=== PATIENT | male | born 1995 | race Asian ===

== ENCOUNTER → 2018-01-06 12:41 | Outpatient (CLI) | payer BC, SELFPAY ==
[2018-01-06 13:26] LABS: Absolute Neutrophil Count 3.8 X10^3/uL (2.0-7.7); Basophil# 0.03 X10^3/uL; Basophil% 0.5 % (0-1); Eosinophil# 0.02 X10^3/uL; Eosinophils% 0.3 % (0-5); Hematocrit 47.5 % (40-54); Hemoglobin 16.5 g/dl (13.0-16.5); Lymphocyte % 27.8 % (19-41); Mean Corp Hgb Conc 34.7 g/gl (32-36); Mean Corpuscular Hgb 32.4 pg (27.0-32.0); Mean Corpuscular Volume 93.1 fL (80-94); Mean Platelet Vol. 10.5 fl (6.2-12.0); Monocyte# 0.55 X10^3/uL; Neutrophil % 62.2 % (47-70); Platelet Count 168 K/mm3 (150-450); RBC Distribution Width SD 40.5 fl (35.1-43.9); White Blood Count 6.1 K/mm3 (4.4-11.0)
[2018-01-06 13:28] LABS: POSITIVE COUNT NO; POSITIVE DIFFERENTIAL NO; POSITIVE MORPHOLOGY NO
[2018-01-06 13:46] LABS: AST(SGOT) 23 U/L (15-37); Alanine Aminotransfer ALT/SGPT 33 U/L (16-61); Albumin, Serum 3.9 g/dL (3.2-5.0); Alkaline Phosphatase 99 U/L (45-117); Anion Gap 5 (5-15); BUN 20 mg/dL (7-18); BUN/Creat Ratio 18.3 RATIO (10-20); Bilirubin, Direct 0.11 mg/dL (0.00-0.30); Calcium,Total 8.8 mg/dL (8.5-10.1); Chloride 104 mmol/L (98-107); Creatinine, Serum 1.09 mg/dL (0.70-1.30); EST Glomerular Filtration Rate 90 mL/min (>60); Est Glom Filt Rate - Afr Amer 109 mL/min (>60); Glucose 106 mg/dL (74-106); Potassium 3.9 mmol/L (3.5-5.1); Protein, Total 7.9 g/dL (6.4-8.2); Sodium Level 141 mmol/L (136-145)
[2018-01-07 14:08] LABS: Absolute CD4 Helper 500 /uL (359-1519); Basophils (Absolute) 0 x10E3/uL (0.0-0.2); CD4/CD8 Ratio 0.55 (0.92-3.72); Eosinophils 0 % (Not Estab.); Eosinophils (Absolute) 0 x10E3/uL (0.0-0.4); Hematocrit 47.7 % (37.5-51.0); Hemoglobin 16.7 g/dL (13.0-17.7); Immature Granulocytes 0 % (Not Estab.); Lymphs 29 % (Not Estab.); Lymphs (Absolute) 1.8 x10E3/uL (0.7-3.1); MCV 91 fL (79-97); Monocytes 7 % (Not Estab.); Monocytes (Absolute) 0.4 x10E3/uL (0.1-0.9); Neutrophils 63 % (Not Estab.); Neutrophils (Absolute) 3.8 x10E3/uL (1.4-7.0); Percent % CD4 Pos. Lymph. 27.8 % (30.8-58.5); Percent % CD8 Pos. Lymph. 50.3 % (12.0-35.5); Platelets 177 x10E3/uL (150-379); RBC Count 5.22 x10E6/uL (4.14-5.80); RDW 13.2 % (12.3-15.4)
[2018-01-07 14:35] LABS: Immature Granulocytes Absolute 0 x10E3/uL (0.0-0.1)
[2018-01-09 14:30] LABS: HIV-1 RNA by PCR, Quant. < 20 copies/mL (.)
== END ==
PROVIDERS: Visit Provider Internal Medicine Infectious Disease
DX: B20 Human immunodeficiency virus [HIV] disease (principal)
CPT/HCPCS: 36415; 80048; 80076; 85025; 86360; 87536

== ENCOUNTER → 2018-02-17 15:13 | Outpatient (CLI) | payer BC, SELFPAY ==
[2018-02-17 20:50] LABS: Hemoglobin 16.4 g/dl (13.0-16.5); Mean Corp Hgb Conc 34.2 g/gl (32-36); Mean Corpuscular Hgb 31.9 pg (27.0-32.0); Mean Corpuscular Volume 93.4 fL (80-94); Mean Platelet Vol. 9.9 fl (6.2-12.0); Platelet Count 196 K/mm3 (150-450); RBC Distribution Width SD 40.5 fl (35.1-43.9); Red Blood Count 5.14 M/mm3 (4.6-6.2); White Blood Count 6.3 K/mm3 (4.4-11.0)
[2018-02-17 21:13] LABS: AST(SGOT) 97 U/L (15-37); Alanine Aminotransfer ALT/SGPT 48 U/L (16-61); Albumin, Serum 4.3 g/dL (3.2-5.0); Alkaline Phosphatase 94 U/L (45-117); Anion Gap 9 (5-15); BUN 24 mg/dL (7-18); BUN/Creat Ratio 21.4 RATIO (10-20); Bilirubin, Direct 0.12 mg/dL (0.00-0.30); Calcium,Total 8.6 mg/dL (8.5-10.1); Chloride 104 mmol/L (98-107); Creatinine, Serum 1.12 mg/dL (0.70-1.30); EST Glomerular Filtration Rate 87 mL/min (>60); Est Glom Filt Rate - Afr Amer 105 mL/min (>60); Globulin 3.8 g/dL (2.2-4.2); Glucose 78 mg/dL (74-106); Potassium 3.5 mmol/L (3.5-5.1); Protein, Total 8.1 g/dL (6.4-8.2); Sodium Level 139 mmol/L (136-145)
[2018-02-17 21:25] LABS: Scan Indicated on CBC? Y/N NO
[2018-02-17 21:28] LABS: Color, Urine Yellow (Yellow); Glucose, Dipstick Normal (Normal); Ketone-Dipstick 15 mg/dl (Negative); Leukocyte Esterase-Dipstick Negative /ul (Negative); Nitrite-Dipstick Negative (Negative); Occult Blood-Urine Negative /ul (Negative); Protein-Dipstick Negative (Negative); Urine Bilirubin Dipstick Negative (Negative); Urine Clarity Clear (Clear); Urine Urobilinogen Normal (Normal)
[2018-02-19 10:01] LABS: Cholesterol 188 mg/dL (200); High Density Lipoprotein 43 mg/dL; Triglycerides 146 mg/dL; Very Low Density Lipoprotein 29 mg/dL (5-40)
[2018-02-20 01:05] LABS: Rapid Plasmin Reagin (RPR) NONREACTIVE (NONREACTIVE)
[2018-02-23 03:06] LABS: Absolute CD4 Helper 620 /uL (359-1519); Basophils (Absolute) 0 x10E3/uL (0.0-0.2); Eosinophils 1 % (Not Estab.); Eosinophils (Absolute) 0 x10E3/uL (0.0-0.4); Hematocrit 48.2 % (37.5-51.0); Hemoglobin 16.2 g/dL (13.0-17.7); Immature Granulocytes 0 % (Not Estab.); Immature Granulocytes Absolute 0 x10E3/uL (0.0-0.1); Lymphs 35 % (Not Estab.); Lymphs (Absolute) 2.2 x10E3/uL (0.7-3.1); MCH 31.5 pg (26.6-33.0); MCHC 33.6 g/dL (31.5-35.7); MCV 94 fL (79-97); Monocytes 9 % (Not Estab.); Monocytes (Absolute) 0.5 x10E3/uL (0.1-0.9); Neutrophils 54 % (Not Estab.); Neutrophils (Absolute) 3.5 x10E3/uL (1.4-7.0); Percent % CD4 Pos. Lymph. 28.2 % (30.8-58.5); Platelets 230 x10E3/uL (150-379); QNTFERON TB Ag Minus Nil Value 0 IU/mL (.); QNTFERON TB Mitogen Value > 10.00 IU/mL (.); RBC Count 5.15 x10E6/uL (4.14-5.80); RDW 13.1 % (12.3-15.4); WBC Count 6.3 x10E3/uL (3.4-10.8)
[2018-02-23 14:06] LABS: Hep C Antibodies <0.1 s/co ratio (0.0-0.9); QNTIFERON TB Gold Negative (Negative)
[2018-02-24 11:36] LABS: HIV-1 RNA by PCR, Quant. < 20 copies/mL (.)
== END ==
PROVIDERS: Visit Provider Internal Medicine Infectious Disease
DX: B20 Human immunodeficiency virus [HIV] disease (principal)
CPT/HCPCS: 36415; 80048; 80061; 80076; 81002; 85027; 86361; 86480; 86592; 86803; 87536

== ENCOUNTER → 2018-06-11 12:27 | Outpatient (CLI) | payer OTHER, SELFPAY ==
[2018-06-11 13:15] LABS: Mucous, Urine 0 SEEN /hpf (<or=2+); Red Blood Cells-Urine 0 SEEN /hpf (0-5); Squamous Epithelial Cells - UA 0 SEEN /hpf (0-5); White Blood Cells 0 SEEN /hpf (0-5)
[2018-06-11 13:37] LABS: Absolute Lymphocyte Count 1.33 X10^3/ul (0.83-4.51); Absolute Neutrophil Count 5.3 X10^3/uL (2.0-7.7); Basophil# 0.03 X10^3/uL; Basophil% 0.4 % (0-1); Eosinophil# 0.04 X10^3/uL; Eosinophils% 0.5 % (0-5); Hematocrit 46.9 % (40-54); Hemoglobin 16.9 g/dl (13.0-16.5); Lymphocyte # 1.33 X10^3/ul (4.0); Lymphocyte % 17.5 % (19-41); Mean Corpuscular Hgb 33.1 pg (27.0-32.0); Mean Platelet Vol. 9.7 fl (6.2-12.0); Monocyte# 0.85 X10^3/uL; Monocyte% 11.2 % (0-10); Neutrophil # 5.33 X10^3/uL (2.7-7.7); Neutrophil % 70.3 % (47-70); Platelet Count 191 K/mm3 (150-450); RBC Distribution Width CV 12.3 % (11.6-14.6); RBC Distribution Width SD 40.8 fl (35.1-43.9); White Blood Count 7.6 K/mm3 (4.4-11.0)
[2018-06-11 13:38] LABS: POSITIVE COUNT NO; POSITIVE DIFFERENTIAL NO; POSITIVE MORPHOLOGY NO
[2018-06-11 13:47] LABS: Color, Urine Yellow (Yellow); Glucose, Dipstick Normal (Normal); Ketone-Dipstick Negative (Negative); Leukocyte Esterase-Dipstick Negative /ul (Negative); Nitrite-Dipstick Negative (Negative); Occult Blood-Urine Negative /ul (Negative); Protein-Dipstick Negative (Negative); Specific Gravity, Urine 1.025 (1.002-1.030); Urine Bilirubin Dipstick Negative (Negative); Urine Clarity Clear (Clear); Urine Urobilinogen Normal (Normal)
[2018-06-11 13:52] LABS: Amorphous Sediment 1+; Bacteria RARE /hpf (None Seen)
[2018-06-11 14:11] LABS: AST(SGOT) 22 U/L (15-37); Alanine Aminotransfer ALT/SGPT 33 U/L (16-61); Alkaline Phosphatase 100 U/L (45-117); Anion Gap 8 (5-15); BUN 15 mg/dL (7-18); BUN/Creat Ratio 12.8 RATIO (10-20); Bilirubin, Direct 0.12 mg/dL (0.00-0.30); Calcium,Total 8.6 mg/dL (8.5-10.1); Chloride 104 mmol/L (98-107); Cholesterol 167 mg/dL (200); Creatinine, Serum 1.17 mg/dL (0.70-1.30); EST Glomerular Filtration Rate 83 mL/min (>60); Est Glom Filt Rate - Afr Amer 100 mL/min (>60); Globulin 4.4 g/dL (2.2-4.2); Glucose 77 mg/dL (74-106); High Density Lipoprotein 47 mg/dL; Potassium 3.7 mmol/L (3.5-5.1); Protein, Total 8.4 g/dL (6.4-8.2); Sodium Level 141 mmol/L (136-145); Triglycerides 128 mg/dL; Very Low Density Lipoprotein 26 mg/dL (5-40)
[2018-06-11 16:20] LABS: Chlamydia Trachomatis by PCR Negative (Negative); Neisserai gonorrhoeae by PCR Negative (Negative); Probe Check PASS; Sample Adequacy Control PASS; Specimen Processing Control PASS
[2018-06-12 03:59] LABS: Rapid Plasmin Reagin (RPR) NONREACTIVE (NONREACTIVE)
[2018-06-12 14:22] LABS: Absolute CD4 Helper 476 /uL (359-1519); Basophils (Absolute) 0 x10E3/uL (0.0-0.2); Eosinophils 0 % (Not Estab.); Eosinophils (Absolute) 0 x10E3/uL (0.0-0.4); Hemoglobin 16.7 g/dL (13.0-17.7); Immature Granulocytes 0 % (Not Estab.); Lymphs 19 % (Not Estab.); Lymphs (Absolute) 1.5 x10E3/uL (0.7-3.1); MCH 32.1 pg (26.6-33.0); MCHC 34.8 g/dL (31.5-35.7); MCV 92 fL (79-97); Monocytes 11 % (Not Estab.); Monocytes (Absolute) 0.9 x10E3/uL (0.1-0.9); Neutrophils 70 % (Not Estab.); Neutrophils (Absolute) 5.7 x10E3/uL (1.4-7.0); Percent % CD4 Pos. Lymph. 31.7 % (30.8-58.5); Platelets 194 x10E3/uL (150-379); RBC Count 5.21 x10E6/uL (4.14-5.80); RDW 13.7 % (12.3-15.4); WBC Count 8.1 x10E3/uL (3.4-10.8)
[2018-06-12 18:22] LABS: Immature Granulocytes Absolute 0 x10E3/uL (0.0-0.1)
[2018-06-14 11:08] LABS: HIV-1 RNA by PCR, Quant. < 20 copies/mL (.)
== END ==
PROVIDERS: Family Provider Internal Medicine Infectious Disease; PCP Internal Medicine Infectious Disease; Visit Provider Internal Medicine Infectious Disease
DX: B20 Human immunodeficiency virus [HIV] disease (principal); B19.10 Unspecified viral hepatitis B without hepatic coma; E78.5 Hyperlipidemia, unspecified
CPT/HCPCS: 36415; 80048; 80061; 80076; 81001; 85025; 86361; 86592; 87491; 87536; 87591

== ENCOUNTER → 2018-11-12 06:16 | Outpatient (CLI) | payer OTHER, SELFPAY ==
[2018-11-12 08:46] LABS: Hematocrit 47.6 % (40-54); Hemoglobin 16.1 g/dl (13.0-16.5); Mean Corp Hgb Conc 33.8 g/gl (32-36); Mean Corpuscular Hgb 32.1 pg (27.0-32.0); Mean Corpuscular Volume 94.8 fL (80-94); Mean Platelet Vol. 10.4 fl (6.2-12.0); Platelet Count 171 K/mm3 (150-450); RBC Distribution Width CV 12.6 % (11.6-14.6); RBC Distribution Width SD 42.6 fl (35.1-43.9); Red Blood Count 5.02 M/mm3 (4.6-6.2); Scan Indicated on CBC? Y/N NO; White Blood Count 5.1 K/mm3 (4.4-11.0)
[2018-11-12 08:53] LABS: AST(SGOT) 52 U/L (15-37); Alanine Aminotransfer ALT/SGPT 40 U/L (16-61); Albumin, Serum 4.1 g/dL (3.2-5.0); Alkaline Phosphatase 97 U/L (45-117); Anion Gap 9 (5-15); BUN 14 mg/dL (7-18); BUN/Creat Ratio 14.5 RATIO (10-20); Bilirubin, Direct 0.16 mg/dL (0.00-0.30); Calcium,Total 8.8 mg/dL (8.5-10.1); Chloride 105 mmol/L (98-107); Cholesterol 176 mg/dL (200); Creatinine, Serum 0.97 mg/dL (0.70-1.30); EST Glomerular Filtration Rate 103 mL/min (>60); Est Glom Filt Rate - Afr Amer 124 mL/min (>60); Globulin 3.4 g/dL (2.2-4.2); Glucose 68 mg/dL (74-106); High Density Lipoprotein 54 mg/dL; Potassium 3.5 mmol/L (3.5-5.1); Protein, Total 7.5 g/dL (6.4-8.2); Sodium Level 141 mmol/L (136-145); Triglycerides 94 mg/dL; Very Low Density Lipoprotein 19 mg/dL (5-40)
[2018-11-13 01:11] LABS: Rapid Plasmin Reagin (RPR) NONREACTIVE (NONREACTIVE)
[2018-11-16 09:11] LABS: HIV-1 RNA by PCR, Quant. < 20 copies/mL (.)
[2018-11-19 10:04] LABS: Absolute CD4 Helper 850 /uL (359-1519); Basophils (Absolute) 0 x10E3/uL (0.0-0.2); Eosinophils 1 % (Not Estab.); Eosinophils (Absolute) 0.1 x10E3/uL (0.0-0.4); HEPATITIS B SURFACE AG Confirm. indicated (Negative); Hematocrit 47.8 % (37.5-51.0); Hemoglobin 16.3 g/dL (13.0-17.7); Immature Granulocytes 0 % (Not Estab.); Immature Granulocytes Absolute 0 x10E3/uL (0.0-0.1); Lymphs 48 % (Not Estab.); Lymphs (Absolute) 2.5 x10E3/uL (0.7-3.1); MCH 32.3 pg (26.6-33.0); MCHC 34.1 g/dL (31.5-35.7); MCV 95 fL (79-97); Monocytes 9 % (Not Estab.); Monocytes (Absolute) 0.5 x10E3/uL (0.1-0.9); Neutrophils 42 % (Not Estab.); Neutrophils (Absolute) 2.2 x10E3/uL (1.4-7.0); Platelets 176 x10E3/uL (150-379); RBC Count 5.05 x10E6/uL (4.14-5.80); RDW 13.8 % (12.3-15.4); WBC Count 5.3 x10E3/uL (3.4-10.8)
[2018-11-19 10:09] LABS: HBsAg Confirmation Positive (.); Hep C Antibodies <0.1 s/co ratio (0.0-0.9)
--- OUTSIDE RECORDS SUMMARY | 2019-01-13 12:23 | XMS RPT_ITS ---
:1995 Author Organization OHIP Care Team Providers Name Role Phone Niya Samuels Attending Unavailable Niya Samuels Referring Unavailable Primay Care Physicia, No Primary Care Unavailable Niya Samuels Attending Unavailable Niya aSmuels Referring Unavailable Primay Care Physicia, No Primary Care Unavailable Niya Samuels Attending Unavailable Primay Care Physicia, No Primary Care Unavailable Niya Samuels Attending Unavailable Niya Samuels Referring Unavailable Niya Samuels Primary Care Unavailable Niya Samuels Attending Unavailable Niya Samuels Referring Unavailable Niya Samuels Primary Care Unavailable PROVIDER, UNKNOWN Admitting Unavailable PROVIDER, UNKNOWN Attending Unavailable JUNIOR CENTENO Primary Care Unavailable PROVIDER, UNKNOWN Admitting Unavailable PROVIDER, UNKNOWN Attending Unavailable JUNIOR CENTENO Primary Care Unavailable Lee, Dr. Ruben Mays Attending Unavailable Lee, Dr. Ruben Mays Admitting Unavailable Lee, Dr. Ruben Mays Attending Unavailable Lee, Dr. Ruben Mays Referring Unavailable Lee, Dr. 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 Lee Active [place] immunodeficiency [facility] virus [HIV] disease / Repository B20(ICD-10) 06/09/2018 Admitting Anogenital (venereal) Dr. Lee Active [place] diagnosis warts / A63.0(ICD-10) [facility] Repository 06/04/2018 Unknown Encounter for other Dr. Lee Active [place] preprocedural [facility] examination / Repository Z01.818(ICD-10) PROCEDURES PROCEDURES DATE CODE DESCRIPTION STATUS SOURCE 06/09/2018 39462([facility] 89814 Completed [place] CPT4) Hospitals Repository 06/09/2018 53414([facility] 99677 Completed [place] CPT4) Hospitals Repository 05/13/2018 45326(C4) HUMAN PAPILLOMA VIRUS [facility] Repository 6,11,16,18,31,33,45,52 ,58 (9-VALENT) 04/08/2018 18602(C4) GC/[facility]YDIA [facility] 04/08/2018 86921(C4) GC/CHLAMYDIA [facility] 04/08/2018 33480(C4) VDRL,SERUM/QUALITATIVE [facility] 04/08/2018 58559(C4) GC/CHLAMYDIA/TRICHOMON [facility] Rep[facility] 04/08/2018 03515(C4) HUMAN PAPILLOMA VIRUS Completed [facility] VACCINE,TYPES System Repository 6,11,16,18,31,33,45,52 ,58 (9-VALENT) RESULTS RESULTS CBC-COMPLETE BLOOD CNT Collected: 11/12/2018 Status: F Source: [place] NO DIFF 6:22 AM [facility] REPOSITORY TYPE CODE TESTS RESULT OUT OF RANGE REFERENCE UNITS LAB L100.1000 4.4-11.0 K/mm3 Normal WBC 5.1 LAB L100.1200 4.6-6.2 M/mm3 Normal RBC 5.02 LAB L100.1300 13.0-16.5 g/dl Normal HGB 16.1 LAB L100.1400 40-54 % Normal HCT 47.6 LAB L100.1500 80-94 fL High MCV 94.8 LAB L100.1600 27.0-32.0 pg High MCH 32.1 LAB L100.1700 32-36 g/gl Normal MCHC 33.8 LAB L100.1810 11.6-14.6 % Normal RDW CV 12.6 LAB L100.1820 35.1-43.9 fl Normal RDW SD 42.6 LAB L100.1900 150-450 K/mm3 Normal PLT 171 LAB L100.2000 6.2-12.0 fl Normal MPV 10.4 Performed By: #### L100.0500 #### [facility] [address] [place], [address] BASIC METABOLIC Collected: 11/12/2018 Status: F Source: [place] PROFILE (BMP) 6:22 AM [facility] REPOSITORY TYPE CODE TESTS RESULT OUT OF RANGE REFERENCE UNITS LAB L501.0100 74-106 mg/dL Low GLU 68 Result Comment: Please note revised GLUCOSE reference range effective 2017. LAB L501.1000 7-18 mg/dL Normal BUN 14 LAB L501.1100 0.70-1.30 mg/dL Normal CREAT,SERUM 0.97 Result Comment: The validity of the calculated GFR AND GFRAA in patients over 70 years has not been determined. Clinical correlation is essential. LAB L501.1110 >60 mL/min Normal EST GFR 103 Result Comment: Non- GFR Calc LAB L501.1115 >60 mL/min Normal EST GFR - AA 124 Result Comment: GFR Calc LAB L501.1300 10-20 RATIO Normal BUN/CRE 14.5 LAB L501.2200 8.5-10.1 mg/dL CA Normal 8.8 LAB L501.5300 136-145 mmol/L NA Normal 141 LAB L501.5600 3.5-5.1 mmol/L K Normal 3.5 LAB L501.5900 98-107 mmol/L CL Normal 105 LAB L501.6100 21.0-32.0 mmol/L Normal CO2 27.0 LAB L501.6200 5-15 Normal GAP 9 Performed By: #### L500.2500, L500.3400, L500.4100 #### [facility] [address], [place], [id number] LIVER PROFILE Collected: 11/12/2018 Status: F Source: [place] 6:22 AM [facility] REPOSITORY TYPE CODE TESTS RESULT OUT OF RANGE REFERENCE UNITS LAB L501.1500 6.4-8.2 g/dL Normal T PROT 7.5 LAB L501.1800 3.2-5.0 g/dL Normal ALB 4.1 LAB L501.1950 2.2-4.2 g/dL Normal GLOB 3.4 LAB L501.4100 15-37 U/L High AST 52 LAB L501.4305 45-117 U/L Normal ALK P 97 LAB L501.4405 16-61 U/L Normal ALT 40 LAB L501.4600 0.20-1.00 mg/dL Normal T BILI 0.70 LAB L501.4700 0.00-0.30 mg/dL Normal D BILI 0.16 Performed By: #### L500.2500, L500.3400, L500.4100 #### [facility] [address] [place], [place], [id number] LIPID PROFILE Collected: 11/12/2018 Status: F Source: [place] 6:22 AM [facility] REPOSITORY TYPE CODE TESTS RESULT OUT OF RANGE REFERENCE UNITS LAB L501.4900 200 mg/dL Normal CHOL 176 Result Comment: <200 mg/dL Desirable 200-240 mg/dL Borderline >240 mg/dL High Risk LAB L501.5000 mg/dL Normal TRIG 94 Result Comment: The drugs N-Acetylcysteine and Metamizole may falsely depress this assay. Serum Triglycerides Reference Interval Normal <150 mg/dL Borderline high 150 - 199 mg/dL High 200 - 499 mg/dL Very High > or = 500 mg/dL LAB L501.6400 mg/dL Normal HDL 54 Result Comment: The drugs N-Acetylcysteine and Metamizole may falsely depress this assay. Reference Range HDL <40 mg/dL Low HDL Cholesterol HDL >or= 60 mg/dL High HDL Cholesterol LAB L501.6500 0-130 mg/dL Normal LDL 103 LAB L501.6600 5-40 mg/dL Normal VLDL 19 Performed By: #### L500.2500, L500.3400, L500.4100 #### [facility] [address] [place], [place], [address] HIV VIRAL LOAD Collected: 11/12/2018 Status: F Source: [place] QUANT 6:22 AM [facility] REPOSITORY TYPE CODE TESTS RESULT OUT OF RANGE REFERENCE UNITS LAB L3890.4100 . copies/mL Normal HIV-1 < 20 RNA,QUANT Result Comment: HIV-1 RNA not detected The reportable range for this assay is 20 to 10,000,000 copies HIV-1 RNA/mL. LAB L3890.4200 . Normal Test not log10 performed HIV-1 RNA Result Comment: Result Units: [id number]/mL Unable to calculate result since non-numeric result obtained for component test. Performed at: - [facility] [id number] Waiter Waitress: Jones Coello MD, Phone: [phone] Performed By: #### L3890.4000 #### [facility] (refer to report for specific site) refer to report for address and phone number RAPID PLASMIN REAGIN Collected: 11/12/2018 Status: F Source: [place] (RPR) 6:21 AM [facility] REPOSITORY TYPE CODE TESTS RESULT OUT OF REFERENCE UNITS RANGE LAB L700.5000 NONREACTIVE NONREACTIVE Normal RPR Performed By: #### L700.5000 #### [facility] [address] [facility] [place], [address] CBC W/DIFF, AUTOMATED Collected: 06/11/2018 Status: F Source: [place] 12:35 PM [facility] REPOSITORY TYPE CODE TESTS RESULT OUT OF RANGE REFERENCE UNITS LAB L100.1000 4.4-11.0 K/mm3 Normal WBC 7.6 LAB L100.1200 4.6-6.2 M/mm3 Normal RBC 5.10 LAB L100.1300 13.0-16.5 g/dl High HGB 16.9 LAB L100.1400 40-54 % Normal HCT 46.9 LAB L100.1500 80-94 fL Normal MCV 92.0 LAB L100.1600 27.0-32.0 pg High MCH 33.1 LAB L100.1700 32-36 g/gl Normal MCHC 36.0 LAB L100.1810 11.6-14.6 % Normal RDW CV 12.3 LAB L100.1820 35.1-43.9 fl Normal RDW SD 40.8 LAB L100.1900 150-450 K/mm3 Normal PLT 191 LAB L100.2000 6.2-12.0 fl Normal MPV 9.7 LAB L100.2100 47-70 % High NEUT% 70.3 LAB L100.2200 19-41 % Low LY% 17.5 LAB L100.2300 0-10 % High MONO% 11.2 LAB L100.2400 0-5 % Normal EO% 0.5 LAB L100.2500 0-1 % Normal BASO% 0.4 LAB L100.2550 0.0-0.9 % Normal IM GRAN % 0.100 Result Comment: IG% - Immature Granulocytes (promyelocytes, myelocytes and metamyelocytes) > 1% indicates that a LEFT SHIFT is Present. LAB L100.2620 2.0-7.7 X10 3/uL Normal Absolute Neut 5.3 LAB L100.2720 0.83-4.51 X10 3/ul Normal Absolute Lymph 1.33 Performed By: #### L100.0100 #### [facility] [address] [place], [place], [id number] URINALYSIS, COMPLETE Collected: 06/11/2018 Status: F Source: [place] 12:35 PM [facility] REPOSITORY Order Comment: Comments: [id number] RED TOP SERUM FROZEN How was Urine Obtained? CLEAN CATCH TYPE CODE TESTS RESULT OUT OF RANGE REFERENCE UNITS LAB L400.3000 Yellow COLOR Normal Yellow LAB L400.3050 Clear Normal CLARITY Clear LAB L400.3200 Normal mg/dl Normal GLUCOSE, UR Normal LAB L400.3300 Negative mg/dL Normal BILIRUBIN URINE Negative LAB L400.3400 Negative mg/dl Normal KETONE UR Negative LAB L400.3465 1.002-1.030 Normal SP.GR. DIPSTX 1.025 LAB L400.3550 5.0 - 8.0 pH UR Normal 6.0 LAB L400.3600 Negative mg/dl PROT Normal DIPSTX Negative LAB L400.3700 Normal mg/dl Normal UROBILI Normal LAB L400.3750 Negative Normal NITRITE UR Negative LAB L400.3780 Negative /ul Normal OCCULT BLOOD-UR Negative LAB L400.3800 Negative /ul LEUK Normal ESTERASE Negative LAB L400.4050 0-5 /hpf WBC 0 Normal SEEN LAB L400.4100 0-5 /hpf 0 Normal RBC-UA SEEN LAB L400.4150 0-5 /hpf SQUAM 0 Normal EPI SEEN LAB L400.4300 None Seen /hpf Normal BACTERIA RARE LAB L400.4350 <or=2+ /hpf 0 Normal MUCUS, URINE SEEN LAB L400.4900 1+ Normal AMORPHOUS Performed By: #### L400.0001 #### [facility] [address] [place], [address] BASIC METABOLIC Collected: 06/11/2018 Status: F Source: [place] PROFILE ([facility]) 12:35 PM [facility] REPOSITORY Order Comment: Comments: [id number] RED TOP SERUM FROZEN TYPE CODE TESTS RESULT OUT OF RANGE REFERENCE UNITS LAB L501.0100 74-106 mg/dL Normal GLU 77 Result Comment: Please note revised GLUCOSE reference range effective 2017. LAB L501.1000 7-18 mg/dL Normal BUN 15 LAB L501.1100 0.70-1.30 mg/dL Normal CREAT,SERUM 1.17 Result Comment: The validity of the calculated GFR AND GFRAA in patients over 70 years has not been determined. Clinical correlation is essential. LAB L501.1110 >60 mL/min Normal EST GFR 83 Result Comment: Non- GFR Calc LAB L501.1115 >60 mL/min Normal EST GFR - AA 100 Result Comment: GFR Calc LAB L501.1300 10-20 RATIO Normal BUN/CRE 12.8 LAB L501.2200 8.5-10.1 mg/dL CA Normal 8.6 LAB L501.5300 136-145 mmol/L NA Normal 141 LAB L501.5600 3.5-5.1 mmol/L K Normal 3.7 LAB L501.5900 98-107 mmol/L CL Normal 104 LAB L501.6100 21.0-32.0 mmol/L Normal CO2 29.0 LAB L501.6200 5-15 Normal GAP 8 Performed By: #### L500.2500, L500.3400, L500.4100 #### [facility] [address] [place], [place], [id number] LIVER PROFILE Collected: 06/11/2018 Status: F Source: [place] 12:35 PM [facility] REPOSITORY Order Comment: Comments: [id number] RED TOP SERUM FROZEN TYPE CODE TESTS RESULT OUT OF RANGE REFERENCE UNITS LAB L501.1500 6.4-8.2 g/dL High T PROT 8.4 LAB L501.1800 3.2-5.0 g/dL Normal ALB 4.0 LAB L501.1950 2.2-4.2 g/dL High GLOB 4.4 LAB L501.4100 15-37 U/L Normal AST 22 LAB L501.4305 45-117 U/L Normal ALK P 100 LAB L501.4405 16-61 U/L Normal ALT 33 LAB L501.4600 0.20-1.00 mg/dL Normal T BILI 0.50 LAB L501.4700 0.00-0.30 mg/dL Normal D BILI 0.12 Performed By: #### L500.2500, L500.3400, L500.4100 #### [facility] [address] [facility] [place], [place], [id number] LIPID PROFILE Collected: 06/11/2018 Status: F Source: [place] 12:35 PM [facility] REPOSITORY Order Comment: Comments: [id number] RED TOP SERUM FROZEN TYPE CODE TESTS RESULT OUT OF RANGE REFERENCE UNITS LAB L501.4900 200 mg/dL Normal CHOL 167 Result Comment: <200 mg/dL Desirable 200-240 mg/dL Borderline >240 mg/dL High Risk LAB L501.5000 mg/dL Normal TRIG 128 Result Comment: The drugs N-Acetylcysteine and Metamizole may falsely depress this assay. Serum Triglycerides Reference Interval Normal <150 mg/dL Borderline high 150 - 199 mg/dL High 200 - 499 mg/dL Very High > or = 500 mg/dL LAB L501.6400 mg/dL Normal HDL 47 Result Comment: The drugs N-Acetylcysteine and Metamizole may falsely depress this assay. Reference Range HDL <40 mg/dL Low HDL Cholesterol HDL >or= 60 mg/dL High HDL Cholesterol LAB L501.6500 0-130 mg/dL Normal LDL 94 LAB L501.6600 5-40 mg/dL Normal VLDL 26 Performed By: #### L500.2500, L500.3400, L500.4100 #### [facility] [address] [place], [address] CT/NG WCH BY PCR Collected: 06/11/2018 Status: F Source: [place] 12:35 PM [facility] REPOSITORY TYPE CODE TESTS RESULT OUT OF RANGE REFERENCE UNITS LAB L8200.2100 Negative Normal Chlam Negative Trac PCR LAB L8200.2200 Negative Normal NG by Negative PCR Performed By: #### L8200.2000 #### [facility] [address] [facility] [place], [address] RAPID PLASMIN REAGIN Collected: 06/11/2018 Status: F Source: [place] (RPR) 12:35 PM [facility] REPOSITORY TYPE CODE TESTS RESULT OUT OF REFERENCE UNITS RANGE LAB L700.5000 NONREACTIVE NONREACTIVE Normal RPR Performed By: #### L700.5000 #### [facility] [address] [place], [address] CD4, T LYMPH HELPER Collected: 06/11/2018 Status: F Source: [place] COUNT 12:35 PM [facility] REPOSITORY TYPE CODE TESTS RESULT OUT OF REFERENCE UNITS RANGE LAB L3890.0800 3.4-10.8 x10E3/uL WBC Normal Count 8.1 LAB L3890.0900 4.14-5.80 x10E6/uL RBC Normal Count 5.21 LAB L3890.1000 13.0-17.7 g/dL Normal Hemoglobin 16.7 LAB L3890.1100 37.5-51.0 % Normal Hematocrit 48.0 LAB L3890.1200 79-97 fL MCV 92 Normal LAB L3890.1300 26.6-33.0 pg MCH Normal 32.1 LAB L3890.1400 31.5-35.7 g/dL MCHC Normal 34.8 LAB L3890.1450 12.3-15.4 % RDW Normal 13.7 LAB L3890.1500 150-379 x10E3/uL Normal Platelets 194 LAB L3890.1600 Not Estab. % 70 Normal Neutrophils LAB L3890.1700 Not Estab. % Lymphs 19 Normal LAB L3890.1800 Not Estab. % 11 Normal Monocytes LAB L3890.1900 Not Estab. % 0 Normal Eosinophils LAB L3890.2000 Not Estab. % 0 Normal Basophils LAB L3890.2100 1.4-7.0 x10E3/uL Neutr Normal Absolute 5.7 LAB L3890.2200 0.7-3.1 x10E3/uL Lymphs Normal Absolute 1.5 LAB L3890.2300 0.1-0.9 x10E3/uL Monos Normal Absolute 0.9 LAB L3890.2400 0.0-0.4 x10E3/uL Eos 0 Normal Absolute LAB L3890.2500 0.0-0.2 x10E3/uL Basos 0 Normal Absolute LAB L3890.2505 . Immature Normal CellS Test not performed LAB L3890.2510 Not Estab. % Immature 0 Normal Grans LAB L3890.2515 0.0-0.1 x10E3/uL Imm 0 Normal Grans Abs Result Comment: Performed at: [place] [id number] Waiter Waitress: Lai Mendoza PhD, Phone: [phone] LAB L3890.3123 . Normal Test not NRBC Count performed LAB L3890.2525 . Normal Test not HEME COMMENT performed LAB L3890.2530 359-1519 /uL Normal 476 ABS CD4 HELPER LAB L3890.2575 30.8-58. % Normal 5 % 31.7 CD4 POS.LYMPH Performed By: #### L3890.0200 #### [facility] (refer to report for specific site) refer to report for address and phone number HIV VIRAL LOAD Collected: 06/11/2018 Status: F Source: [place] QUANT 12:35 PM [facility] REPOSITORY TYPE CODE TESTS RESULT OUT OF RANGE REFERENCE UNITS LAB L3890.4100 . copies/mL Normal HIV-1 < 20 RNA,QUANT Result Comment: HIV-1 RNA not detected The reportable range for this assay is 20 to 10,000,000 copies HIV-1 RNA/mL. LAB L3890.4200 . Normal Test not log10 performed HIV-1 RNA Result Comment: Result Units: qzv23wsdl/mL Unable to calculate result since non-numeric result obtained for component test. Performed at: [facility] [id number] Waiter Waitress: Yuan Phillips MD, Phone: [phone] Performed By: #### L3890.4000 #### [facility] (refer to report for specific site) refer to report for address and phone number MISCELLANEOUS LAB Collected: 06/11/2018 Status: F Source: [place] PROCEDURE 12:35 PM [facility] REPOSITORY Order Comment: Comments: [id number] RED TOP SERUM FROZEN Test(s) Ordered: [id number] RED TOP SERUM FROZEN TYPE CODE TESTS RESULT OUT OF RANGE REFERENCE UNITS LAB L801.1541 Normal [facility] TEST Result Comment: TEST RESULT UNITS REF INTERVAL NGI HBV SuperQuant Hepatitis B Quantitation 9,400 Copies/mL PCR Amplification + Detection Performed Test Information PCR assay performed using [employer]'s validated, proprietary methodology. Results greater than or equal to 100 Copies/mL of HBV DNA indicate the presence of virus-specific nucleic acid sequence. TESTING PERFORMED AT [facility]. ORIGINAL REPORT ON FILE IN LAB CONTAINS ADDITIONAL TEST SITE INFORMATION. Performed By: #### L801.1541 #### [place] [facility] [address], [id number] HOMEGOING INSTRUCTIONS Observed: 06/09/2018 Status: UNK Source: [facility] 2:33 PM [facility]OSPITALS REPOSITORY Additional Instructions: Belongings Returned: ? Valuables/Medications/Belongings Returnedyes Please call Dr. Howard with any questions or concerns. Call for a follow up appointment (Band[place]) (Cally) Electronic Signatures: Nicole De SouzaRN) (Signed 09-Jun-2018 14:34) Authored: Additional Instructions Last Updated: 09-Jun-2018 14:34 by Nicole De SouzaRN) POST OPERATIVE NOTE - Observed: 06/09/2018 Status: COMPLETED Source: [place] 2:12 PM HOSPITALS REPOSITORY Post Operative Note: PreOp Diagnosis: Perianal condyloma Post-Procedure Diagnosis: same Procedure: excision/fulguration of perianal condyloma Surgeon: Dr. Ruben Howard Resident/Fellow/Other Electric Knife Operator: Anesthesia: General Estimated Blood Loss (mL): minimal Specimen: yes. condyloma Complications: none Findings: 4.5cm perianal condyloma Patient Returned To/Condition: PACU in stable condition Operative Report Dictated: Dictation: yes [id number] Signature/Cosignature/Attestation: Lacquerer Only - Attest to Medical Student/Acting Rn Internal Medicine documentationAs a teaching institution, we recognize that medical students need to learn how to formulate documentation in the medical record. Although this document has been reviewed and the student has been given formative feedback by me, clinical decisions should not be based on the information contained herein. Electronic Signatures: María Lugo (MED Hashdoc) (Signed 09-Jun-2018 14:14) Authored: Post Operative Note, Signature/Cosignature/Attestation Ruben Howard) (Signed 09-Jun-2018 14:45) Authored: Post Operative Note, Signature/Cosignature/Attestation Co-Signer: Post Operative Note, Signature/Cosignature/Attestation Last Updated: 09-Jun-2018 14:45 by Ruben Howard) PREOP CHECKLIST Observed: 06/09/2018 Status: UNK Source: [place] 12:34 PM HOSPITALS REPOSITORY Preop Checklist: Preop Checklist: ? Arrival [id number] ? Arrival Time23:00 ? Procedure Typeexcision / fulgaration/ perianal condyloma ? NPO [id number] 23:00 ? ID Band Onyes ? Allergy Bandno known allergies ? Consent Signedpending ? H&P Completepending ? Anesthesia Assessment Completedpending ? EKG Performednot ordered ? Chest X-Ray Performednot ordered ? Chlorhexadine Bath Givennot applicable ? Soap and water bath with hair shampoo the night before surgerynot applicable ? SCD's Appliedyes ? WHIT Hose Appliednot ordered ? Denturesnot applicable ? Prostheticsnot applicable ? Hearing Aidsnot applicable ? Valuables Securedplaced in locker ? Glasses / Contactsnot applicable ? Bowel Prepno Cardiovascular Assessment: ? Apicalregular ? Radial Pulsespalpable ? Pedal Pulsespalpable ? Extremitieswarm Respiratory Assessment: ? Respirationsunlabored regular ? Air Exchangeequal, good ? Breath Soundsclear Neurological Assessment: ? Level of Consciousnessalert, oriented ? Mobilitymoves all extremities ? Able to Express Selfyes ? Age Appropriateyes ? Emotional Statuscalm Preop Education: ? Surgical Site Infection Preventionyes ? Pain Scales and Managementyes Language / Communication: ? Language / CommunicationEnglish Electronic Signatures: Nicole De Souza) (Signed 09-Jun-2018 12:37) Authored: Preop Checklist Last Updated: 09-Jun-2018 12:37 by Nicole De Souza (YOLANDA) HISTORY AND PHYSICAL Observed: 06/09/2018 Status: COMPLETED Source: [facility] - SURGICAL UPDATE < 12:12 PM HOSPITALS REPOSITORY 30 DAYS History & Physical Reviewed: I have reviewed the History and Physical dated: 04-Jun-2018 History and Physical reviewed and relevant findings noted. Patient examined to review pertinent physical findings.: No significant changes Home Medications Reviewed: no changes noted Allergies Reviewed: no changes noted This patient has been seen and discussed with the attending physician responsible for performing the procedure: yes Signatures/Attestation/Certification: Attending Provider ? Inpatient Certification StatementN/A - observation patient/other outpatient visits Electronic Signatures: Ruben Howard) (Signed 09-Jun-2018 12:13) Authored: History & Physical Reviewed, Signatures/Attestation/Certification Last Updated: 09-Jun-2018 12:13 by Ruben Howard) PATIENT PROFILE - Observed: 06/09/2018 Status: UNK Source: [facility] PREOP V2 12:10 PM HOSPITALS REPOSITORY Profile: Initial Info: How to be Addressedpyae Spoken Language PreferredEnglish Source of Informationpatient Are you currently using the Personal [facility] Record or MY[facility]no Are you interested in learning more about MY[facility] for the management of your healthyes, information provided Email [email or web address] Stated Reason for Admissionremoving hemorhoid Primary Contact Name and Numbersteve/[phone] Limitations on Visitors/Phone Callsnone Patient Belongingsnone Medications Brought to Hospitalno General Health: Weight in kg67.5 kilogram(s) Weight in wuc960 pound(s) Weight Methodstated Height in cm172.7 centimeter(s) Height in feet5 feet Height in inches8 inch(es) Height Methodstated BMI (kg/m2)22.631 square meter Patient or Family Member Reaction to Anesthesiano previous reaction Blood Avoidance/Restrictionsnone Previous Transfusion Reactionno Health Mgmt: Symptoms/Conditions Managed at [facility] Barriers to Managing Healthnone Relationship/Environ: Lives Withalone(1) Living Arrangementsresidential facility/assisted Living [facility] Resource/Environmental Concernsnone Anticipated Transition Toturner Services Anticipated at Transitionnone Substance: Current or Former Substance Use never: Cigarette/Tobacco, e-Cigarette/Vaping, Alcohol, Street Drugs Risk Screens: Advance Directive Medicalno Advance Directive Information Givenpatient/family declined Advance Directive Mental Healthnot applicable During the past month, have you often been bothered by feeling down, depressed or hopeless?no During the past month, have you often had little interest or pleasure in doing things?no Have you had any thoughts of harming yourself?no Have you had any thoughts of harming anyone else?no Patient is Able to be Assessed for Learningyes Factors Influencing Readiness to Learninterest in learning Factors that Impact Ability to Learnnone Devices/Methods Used to Communicatenone Learning Preferenceswritten material; verbal instruction Cultural Considerationsnone Developmental Considerationsnone Spiritism Considerationsnone Other learner availableno [place] RiskPatient location auto qualifies him/her for HIGH RISK. Are there any cultural, spiritual, buddhist practices/values/needs that are important for us to know?no Do you want a visit/item from Pastoral Care?no Would you like your Field Artillery Crewmember/Mastercam Programmer notified?no Pain Scalenumerical 0-10 Pain Scale Educationteaching provided Current Pain Level3 = Mild Acceptable Pain Level6 = Moderate Chronic Painno Information Review: ? Allergies, Home Meds and Significant Events have been Reviewed and Verified with Patient/Familyyes Allergy, Intolerance, Adverse Event: Allergies: ? No Known Allergies: Active Significant Events: 09-Jun-2018 ? appendectomy: Past Surgical History, Active 09-Jun-2018 ? HIV: Past Medical History, Active 09-Jun-2018 ? adjustment disorder: Past Medical History, Active 09-Jun-2018 ? hepatitis B: Past Medical History, Active Electronic Signatures: Nicole De Souza (RN) (Signed 09-Jun-2018 12:33) Authored: Profile, Additional Information Last Updated: 09-Jun-2018 12:33 by Nicole De Souza (YOLANDA) References: 1. Data Referenced From Patient Profile - Adult v2 05/22/2018 2:54 PM [facility] Observed: 06/09/2018 Status: F Source: [place] [facility] 12:00 [facility] REPOSITORY Name JANUARY CHAVIS Pathologist: LEAH CONTRERAS MD, PhD Date of Procedure: 06/09/2018 Date Received: 06/09/2018 Date Reported 06/10/2018 Submitting Physician: RUBEN HOWARD MD Location: [facility] FINAL DIAGNOSIS A. ANAL CONDYLOMA, EXCISION: -- FRAGMENTS OF CONDYLOMA ACUMINATUM. Electronically Signed Out By LEAH CONTRERAS MD, PhD/XLI Clinical History: anal condyloma Specimens Submitted As: A: ANAL CONDYLOMA Gross Description: A. ANAL CONDYLOMA: Received in formalin labeled with the patient's name and number, and (A) anal condyloma, are multiple fragments of white-zamora, lobulated, villous soft tissue aggregating to 4.5 x 2.8 x 1.7 cm. The apparent resection margins are inked. The specimens are sectioned. The specimen is entirely submitted in 4 cassettes. [facility]/06/09/2018 Performed By: #### RH #### [facility] [id number] [place] [id number] OPERATIVE REPORT Observed: 06/09/2018 Status: UNK Source: [place] 12:00 [facility] REPOSITORY [facility] [id number] [place] [address] Patient Name: JANUARY CHAVIS : 1995 Date of Service: 06/09/2018 Patient Location: AOR AOR0 [id number] Patient Type: O Surgeon: Ruben Howard MD Report Type: Operative Reports PREOPERATIVE DIAGNOSES: 1. Human immunodeficiency virus. 2. Perianal condyloma. POSTOPERATIVE DIAGNOSES: 1. Human immunodeficiency virus. 2. Perianal condyloma. PROCEDURE: Excision/fulguration of perianal condyloma. ATTENDING: Ruben Howard MD. ANESTHESIA: General. CLINICAL NOTE: The patient is a 23-year-old man with history of HIV. For the past 3 months, he has developed fungating condyloma involving the perianal region. He admits to unprotected anal intercourse. On clinical exam, he has a large burden of pedunculated, friable condyloma lesions, and he comes in for excision/fulguration of this. Risks, benefits, and alternatives were discussed preop and he agreed to the operation. DESCRIPTION OF PROCEDURE: The patient was taken to the operating room, placed supine on the operating table. Time-out was established. General anesthesia was induced with laryngeal mask airway. He was placed in lithotomy position [facility] stir[facility]. Perianal region was sterilely prepared. The condyloma extended circumferentially around the margin of the anal verge. It measured 4.5 cm in greatest dimension. Using a small jaw LigaSure, we excised the condyloma again, circumferentially around the margin of the anal verge. The specimens were handed off piecemeal. Smaller satellite lesions were cauterized using the cautery. Anoscopy showed some evidence of mucosal implants and these were treated with desiccation with the cautery. As to close the mucocutaneous border, we placed interrupted 3-0 chromic stitches around the periphery and then infiltrated with solution of 1% lidocaine, 0.25% Marcaine, with epinephrine. Bacitracin and ( ) ointments were applied. ABD pad, mesh underwear were placed. He tolerated the procedure without difficulty and was returned to recovery room in stable condition. Ruben Howard MD EST TT: 06/10/2018 06:53 AM EST DICTATION NUMBER: [id number] DEREK JOB NUMBER: [id number] CC: NIYA SAMUELS [address] [place] [address] 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 Admits to itching, bleeding after BM and pain with sitting. Also extreme tenderness with any pressure. Denies prior history hemorrhoids. 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 No Known Allergies: Medications Prior to Admission: see OMR. Review of Systems: Gastrointestinal: COMMENTS: anal mass - see HPI; Hep B Psychiatric: COMMENTS: hospitalized 05/22-05/26/18 for SI - diagnosed adjustment disorder with mixed anxiety/depresison Allergic/Immunologic: COMMENTS: HIV + - under treatment with stable counts All Other Systems: All other systems reviewed and are negative Objective: Objective Information: HT 5 ' 8 WT 149# 68kg T 97.7F temporal thermometer BP 122/81 P 69 Pulse ox 98% denies problems with anesthesia in the past Physical Exam: Constitutional: Alert orientated x 3 no acute distress pleasant and cooperative Eyes: PERRL ENMT: pharynx clear no erythema or exudate noted Head/Neck: normocephalic neck supple nontender trachea midline no palpable lymphadenopathy noted no carotid bruits noted Respiratory/Thorax: CTA without wheezes rales rhonchi heard respiratory rate regular and unlabored Cardiovascular: RR without murmur heard at this time Gastrointestinal: soft nontender no definitive masses noted Genitourinary: defer Musculoskeletal: no gross deformities moves all extremities without difficulty Extremities: no pedal edema noted DP pulses palpable Neurological: cranial nerves grossly intact Breast: defer Lymphatic: No significant lymphadenopathy Psychological: Appropriate mood and behavior Skin: warm and dry, good color, good turgor and texture Assessment and Plan: Problem List: Medical History: History of adjustment disorder: Description: hospitalized 05/22-05/26/18 Hepatitis B virus infection: HIV (human immunodeficiency virus infection): Impression 1: perianal condyloma Plan for Impression 1: excision / fulguration of perianal condyloma Plan for Impression 2: records reviewed including any recent labs +/or EKG patient evaluated through PAT and record sent to anesthesia preoperative instructions reviewed and given to patient post op pain control sheet reviewed and given to patient labs done 05/26/18 EKG done 05/22/18 Signatures/Attestation/Certification: Attending Provider ? Inpatient Certification StatementN/A - observation patient/other outpatient visits Electronic Signatures: Coral Rocha (SUZI) (Signed 04-Jun-2018 09:49) Authored: History of Present Illness, Comorbidities, Past Medical/Surgical History, Family History, Social History, Allergies, Medications Prior to Admission, Review of Systems, Objective, Assessment and Plan, Signatures/Attestation/Certification Ruben Howard) (Signed 19-Jun-2018 14:53) Authored: Signatures/Attestation/Certification Co-Signer: History of Present Illness, Comorbidities, Past Medical/Surgical History, Family History, Social History, Allergies, Medications Prior to Admission, Review of Systems, Objective, Assessment and Plan, Signatures/Attestation/Certification Last Updated: 19-Jun-2018 14:53 by Ruben Howard) DISCHARGE PLANNING Observed: 05/26/2018 Status: UNK Source: [facility] 3:04 PM [facility]OSPITALS REPOSITORY Patient Learning: ? Factors that Impact Ability to Learnacuteness of illness(1) Other Factors: ? 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 The patient is HIV positive and has financial and academic pressures. The patient expressed concerns regarding getting counseling services at [employer] where he is a student. DEANDRE spoke to Katerine Marquez at the wellness center and scheduled an appt on the 06/09/18. Katerine assured DEANDRE that the patient will not be denied counseling services due to financial reasons. DEANDRE gave instruction to the patient to call Katerine if he needs to get in sooner. DEANDRE is working an intake [facility] the [facility]. DEANDRE also provided the patient with the free clinic in [place] along with a discount card fro prescriptions. The patient has a follow-up with Dr. Lyons for infectious disease. No further SW needs at this time. Tiffanie Morrow [facility] 05/26/18 Nursing 1630 Pt. was discharged with all belongings, picked up by Ant. Per request, pt. was discharged to his dorm room [place] [address] His house mom will meet him at the dorm and take him home from there. Medication education provided and pt. verbalized an understanding and intent to comply as directed, prescriptions provided. He stated that he did not need the Colace (ordered as needed), and that everytime he has taken it he had diarrhea. Pt. agreed to comply with scheduled follow up at [facility] counseling. He reported that he has an appointment already scheduled with his infectious disease physician Dr. Samuels in [place] at the end of this month. He agreed to receive additional services/support from the [facility]. He understood someone would be in contact with him regarding this. He was seen by Dr. Howard for a general surgery consult prior to discharge and it was reported by pt. and resident physician that Dr. Howard will preform surgery for pt.'s anal fissure. Dr. Howard stated someone from his office will contact pt. to schedule. Pt. was also provided with the office phone number. Pt. reported that he felt ready for discharge, denied any thoughts to harm himself or others. Addie Gonzalez RN Final Disposition/Discharge: Disposition/Discharge Information: Discharge/Transfer Information: ? Discharge/Transfer Date/[id number] ? Discharge Modeambulatory ? Transportation Methodtransportation service ? Valuables/Medications/Belongings Returnedyes ? Security Envelope Returnedyes ? Final DispositionHome Electronic Signatures: Addie Gonzalez ([place]) (Signed 26-May-2018 16:43) Authored: Discharge Planning Note, Final Disposition/Discharge Tiffanie Morrow ([facility]) (Signed 26-May-2018 15:15) Authored: Discharge Planning Note Last Updated: 26-May-2018 16:43 by Addie Gonzalez ([facility] [place]) References: 1. Data Referenced From 3. Plan of Care - Behavioral 05/22/2018 02:48 PM 2. Data Referenced From Admission Risk Screen - Adult 05/22/2018 02:48 PM CONSULT-SURGERY Observed: 05/26/2018 Status: COMPLETED Source: [place] 1:18 PM HOSPITALS REPOSITORY Service: Service: Surgery History of Present Illness: HPI: Mr. Chavis is a 23yo male with a PMH of HIV who was admitted on 05/21/18 to inpatient psychiatry for depression and SI. Surgery was consulted for perianal pain. Patient states that the pain began 2.5 months ago and since then has been worsening. Saw a physician in the past who dx'd him with hemorrhoids and gave him a cream, which he uses regularly. Was to see a physician for it worsening but was unable to attend his appointment, since he was hospitalized. Admits to recent unprotected anal sex. States he has bright red blood per rectum after each bowel movement. Nothing makes it better and pressure on it makes it worse. States it is uncomfortable to sit and is exquisitely tender to touch. HIV load unknown currently. Denies n/v, constipation, diarrhea, abdominal pain, SOB, cough, weakness. Past Medical/Surgical History: Medical History: External hemorrhoids: Rectal fissure: Hepatitis B virus infection: HIV (human immunodeficiency virus infection): Review Family/Social History and ROS: Review Family/Social History and ROS: Alcohol Use: occasionally Occupation: Student No ROS has been documented on this patient. Social History: Alcohol Use: occasionally Constitutional: NEGATIVE: Fever, Chills Respiratory: NEGATIVE: Productive Cough, Shortness of Breath Gastrointestinal: NEGATIVE: Nausea, Vomiting, Diarrhea, Constipation, Abdominal Pain Genitourinary: NEGATIVE: Dysuria Allergies: ? No Known Allergies: Objective: Physical Exam: Constitutional: Well developed, awake/alert/oriented x3, no distress, alert and cooperative Eyes: PERRL, EOMI, clear sclera Respiratory/Thorax: Patent airways, CTAB, normal breath sounds with good chest expansion, thorax symmetric Cardiovascular: Regular, rate and rhythm, no murmurs Gastrointestinal: Nondistended, soft, non-tender, no rebound tenderness or guarding, no masses palpable, no organomegaly, +BS, no bruits Tender to palpation 4cm firm perianal mass, no erythema, drainage, or discharge. Extremities: normal extremities, no cyanosis edema, contusions or wounds, no clubbing Psychological: Appropriate behavior Skin: Warm and dry, no lesions, no rashes Medications: Medications: Continuous Medications No continuous medications are active Scheduled Medications 1. Efavirenz: 600 mg Oral Every 24 Hours 2. Lidocaine 4% Topical Cream: 1 application(s) Topical 3 Times a Day 3. Tenofovir Disoproxil Fumarate 300 mg - Emtricitabine 200 m tablet(s) Oral Every 24 Hours PRN Medications 1. Acetaminophen: 650 mg Oral Every 4 Hours 2. diphenhydrAMINE: 50 mg Oral Every 6 Hours 3. diphenhydrAMINE Injectable: 50 mg IntraMuscular Every 6 Hours 4. Docusate: 100 mg Oral 2 Times a Day 5. Haloperidol Lactate: 5 mg Oral Every 6 Hours 6. Haloperidol Lactate Injectable: 5 mg IntraMuscular Every 6 Hours 7. Ibuprofen: 400 mg Oral Every 6 Hours 8. LORazepam: 2 mg Oral Every 6 Hours 9. LORazepam Injectable: 2 mg IntraMuscular Every 6 Hours 10. Magnesium Hydroxide -Al Hydrox -Simethicone Oral Liquid: 30 mL Oral Every 6 Hours 11. Magnesium Hydroxide Oral Liquid CONCENTRATE: 10 mL Oral Every 24 Hours Recent Lab Results: Results: I have reviewed these laboratory results: Comprehensive Metabolic Panel 26-May-2018 11:02:00 ResultValue Glucose, Serum 89 NA 138 K 4.0 CL 100 Bicarbonate, Serum 33 H Anion Gap, Serum 9 L BUN 15 CREAT 0.99 GFR-Non >60 GFR- >60 Calcium, Serum 9.5 ALB 4.3 ALKP 83 T Pro 7.0 T Bili 0.5 Alanine Aminotransferase, Serum 28 Aspartate Transaminase, Serum 22 Complete Blood Count + Differential 26-May-2018 11:02:00 ResultValue White Blood Cell Count 4.9 Red Blood Cell Count 5.46 HGB 17.5 HCT 48.4 MCV 89 MCHC 36.2 H PLT 183 RDW-CV 11.9 Neutrophil % 64.4 Immature Granulocytes % 0.2 Lymphocyte % 26.2 Monocyte % 7.8 Eosinophil % 1.0 Basophil % 0.4 Neutrophil Count 3.12 Lymphocyte Count 1.27 Monocyte Count 0.38 Eosinophil Count 0.05 Basophil Count 0.02 Gonorrhea + Chlamydia, Nucleic Acid Det. 25-May-2018 08:32:00 ResultValue N. Gonorrhoeae, Amplified NEGATIVE Chlamydia Trach, Amplified NEGATIVE Fluid Source Urine Assessment: Mr. Chavis is a 23 yo male admitted to inpatient psych for depression and suicidal ideations. He has a PMH of HIV. 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 - Surgical office will contact him to schedule surgery. - Continue current psych and HIV medications. Discussed with Dr. Howard. Dariana Simmons DO PGY-1 Physical Medicine and Rehabilitation Pager [phone] Signature/Cosignature/Attestation: Comments/ Additional Findings Patient is a 23-year-old man with history of depression, HIV. Admitted to the psychiatric unit with suicidal ideation. He is much better at this time and is scheduled to be discharged. Surgery has been consult for a large perianal growth that he has had for approximately 2-1/2 months. This is quite friable and associated with bleeding and irritation. He admits to unprotected anal sex. On exam has a large, pedunculated condyloma acuminata just at the anal verge. This measures at least 4 cm. Okay with discharging him today. My office will contact him to schedule for excision/fulguration of this large perianal condyloma. Electronic Signatures: Ruben Howard) (Signed 26-May-2018 14:04) Authored: Signature/Cosignature/Attestation Co-Signer: Service, History of Present Illness, Past Medical/Surgical History, Review Family/Social History and ROS, Allergies, Objective, Assessment/Recommendations Dariana Simmons (Resident)) (Signed 26-May-2018 13:46) Authored: Service, History of Present Illness, Past Medical/Surgical History, Review Family/Social History and ROS, Allergies, Objective, Assessment/Recommendations Last Updated: 26-May-2018 14:04 by Ruben Howard) CBC AND DIFFERENTIAL Collected: 05/26/2018 Status: F Source: [place] 11:02 AM HOSPITALS REPOSITORY TYPE CODE TESTS RESULT OUT OF REFERENCE UNITS RANGE LAB WBCR(LOINC 4.4 - 11.3 x10E9/L ) WBC 4.9 LAB RBCCT(LOIN 4.50 - 5.90 x10E12/L C) RBC 5.46 LAB HGB(LOINC) 13.5 - 17.5 g/dL HGB 17.5 LAB HCT(LOINC) 41.0 - 52.0 % HCT 48.4 LAB MCV(LOINC) 80 - 100 fL MCV 89 LAB MCHC2(LOIN 32.0 - 36.0 g/dL C) MCHC High 36.2 LAB PLTCT(LOIN 150 - 450 x10E9/L C) PLT 183 LAB RDWCV(LOIN 11.5 - 14.5 % C) RDW-CV 11.9 LAB NEUT(LOINC 40.0 - 80.0 % ) % NEUTROPHIL 64.4 LAB IG(LOINC) 0.0 - 0.9 % % AUTOMATED 0.2 IMMATURE GRAN Result Comment: Percent differential counts (%) should be interpreted in the context of the absolute cell counts (cells/L). LAB LYMPH(LOINC) 13.0 - 44.0 % % LYMPHOCYTE 26.2 LAB MONO(LOINC) 2.0 - 10.0 % % MONOCYTE 7.8 LAB EOS(LOINC) 0.0 - 6.0 % % EOSINOPHIL 1.0 LAB BASO(LOINC) 0.0 - 2.0 % % BASOPHIL 0.4 LAB #NEUT(LOINC) 1.20 - 7.70 x10E9/L NEUTROPHIL 3.12 LAB #LYMP(LOINC) 1.20 - 4.80 x10E9/L LYMPHOCYTE 1.27 LAB #MONO(LOINC) 0.10 - 1.00 x10E9/L MONOCYTE 0.38 LAB #EOS(LOINC) 0.00 - 0.70 x10E9/L EOSINOPHIL 0.05 LAB #BASO(LOINC) 0.00 - 0.10 x10E9/L BASOPHIL 0.02 Performed By: #### CBCDF #### [facility] [address] [place], [place] [id number] COMPREHENSIVE PANEL Collected: 05/26/2018 Status: F Source: [place] 11:02 AM HOSPITALS REPOSITORY TYPE CODE TESTS RESULT OUT OF REFERENCE UNITS RANGE LAB GLU(LOINC) 74 - 99 mg/dL GLUCOSE 89 LAB SOD(LOINC) 136 - 145 mmol/L SODIUM 138 LAB K(LOINC) 3.5 - 5.3 mmol/L POTASSIUM 4.0 LAB CHLOR(LOIN 98 - 107 mmol/L C) CHLORIDE 100 LAB BIC(LOINC) 21 - 32 mmol/L BICARBONATE High 33 LAB ANGAP(LOIN 10 - 20 mmol/L C) Low ANION GAP 9 LAB UREA(LOINC 6 - 23 mg/dL ) UREA NITROGEN 15 LAB CREA(LOINC 0.50 - 1.30 mg/dL ) CREATININE 0.99 LAB GFRFN(LOIN >60 mL/min/1.7 C) 3m2 GFR-NON AM. >60 LAB GFRAA(LOIN >60 mL/min/1.7 C) 3m2 GFR- AM. >60 Result Comment: CALCULATIONS OF ESTIMATED GFR ARE PERFORMED USING THE MDRD STUDY EQUATION FOR THE IDMS-TRACEABLE CREATININE METHODS. CLIN CHEM 2007;53:766-72 LAB CA(LOINC) 8.6 - 10.3 mg/dL CALCIUM 9.5 LAB ALB(LOINC) 3.4 - 5.0 g/dL ALBUMIN 4.3 LAB AP(LOINC) 33 - 120 U/L ALKALINE PHOSPHATASE 83 LAB TP(LOINC) 6.4 - 8.2 g/dL TOTAL PROTEIN 7.0 LAB AST(LOINC) 9 - 39 U/L AST 22 LAB TBILI(LOINC) 0.0 - 1.2 mg/dL BILIRUBIN,TOTAL 0.5 LAB ALT(LOINC) 10 - 52 U/L ALT 28 Result Comment: Patients treated with Sulfasalazine may generate falsely decreased results for ALT. Performed By: #### CMP #### [facility] [address] [place], [place] [id number] DISCHARGE SUMMARY Observed: 05/26/2018 Status: COMPLETED Source: [place] 10:02 AM HOSPITALS REPOSITORY Send Summary: Discharge Summary Providers: Provider RoleProvider Name ? Can Espino ? ConsultingKrzysztof, Flaco ? PrimaryRequired, No Pcp ? AttendingLatasha Brooks Note Recipients: Latasha Brooks DO Hahn, David Yeunsik, MD Required, No Pcp, Ruben Trejo MD [facility]- Attn: Katerine Marquez - [phone] ANGELNIYA CALDWELL Discharge: Summary: Admission Date: .21-May-2018 20:08:00 Discharge Date: 26-May-2018 Attending Physician at Discharge: Latasha Brooks Admission Reason: Suicidal ideation(1) Final Discharge Diagnoses: Adjustment disorder with mixed anxiety and depressed mood Procedures: None Condition at Discharge: Satisfactory Disposition at Discharge: .Home Vital Signs: T PRBPSpO2 [id number] Date/Time05/26 7:0605/26 7:0605/26 7:0605/26 7:06 Range(36.5C - 36.6C ) (58 - 58 ) (16 - 16 ) (98 - 98 )/ (62 - 62 ) Hospital Course: Mr. January Chavis is a 23 year old [place] male with no known past psychiatric history and past medical history of HIV who presented to [facility] ED via police with suicidal ideation. 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 Per ED notes, the patient expressed feeling like a financial burden on his dad who is back home in [place] and noted patient cried throughout the assessment and was very upset about medical expenses that would accrue again as a result of him being the ED. Inpatient admission was recommended to further asses his suicidal ideation. The patient was admitted to psychiatry on on an involuntary basis. He was restricted to the stephen and placed on suicide, elopement, and behavioral precautions. The plan at the time of admission was evaluation, stabilization, and treatment. On initial evaluation, Mr Chavis stated his suicidal feelings were ?something that has been building up. He expressed that his stressors include his father?s health, financial stability and lack of romantic relationships here in the [place]. When asked about the email he sent to his professor he stated he had emailed his professor to explain why his assignment was not sent in. He explained in his email that his laptop had stopped working, he felt overwhelmed with his recent HIV diagnosis, was financially struggling and that all these things led him to contemplate ending his life. He denied self-harming behavior. When questioned if he had a specific plan, he stated very vaguely that he would wait to go back to [place] so that his family would not have to worry about shipping his body back. He denied access to weapons/guns. He denied any previous attempts, although there was an instance when he was 16 and sat on the roof of his house in [place] and had similar thoughts. He stated he did not make an actual attempt at the time because his father had interrupted and he didn?t, at the time, revisit the idea to make an attempt. was asked how long he?s had this wish to end his life, and he stated it is something he?s been thinking about since he was 16. He denied AH,VH, HI, or substance use. During his hospital course, he consistently denied SI. Per nursing reports, Mr. Chavis has been calm, cooperative and engaging in groups throughout his stay. The patient was asked who he considers his support system in the [place] and he mentioned two host moms, Kathy ([phone]) and Nahomy([phone]). They were contacted and appeared to be very supportive and concerned for Pyae. The patient self-reported feeling better since the day of his admission after attending groups. Mr. Chavis was assessed for underlying depression and anxiety disorders which were ruled out. His presentation is thought to be a part of an adjustment disorder with mixed depression and anxiety. It was not felt he would benefit from medical management but would instead need ongoing therapy on an outpatient basis. Social work was able to set up appointments that would be financially feasible, as well as conveniently located at/near his school for him. Mr. Chavis had medical concerns regarding a mass at his rectum and stated he missed a consultation appointment with a surgeon as a result of his hospitalization. He also stated that since his last STD test in November, he had multiple sexual partners and was therefore tested for gonorrhea and chlamydia. Currently, the results are still pending and the patient was told that should these tests come back positive, he would be contacted/followed up. He indicated that he follows Dr. Samuels regularly to treat and monitor his HIV. His Atripla was continued, and he was given topical lidocaine and preparation H for symptomatic relief. Surgery was also consulted who saw him and recommended they would be able to set up a surgery date for him in the near future. On the day of discharge, denied SI,HI,AH,VH. He was goal oriented and looking forward to finishing his senior year of college at [employer]. Coping mechanisms were discussed and he was given a handout that included emergency crisis numbers. He also indicated that exercising and doing yoga provide a release for him and was encouraged to participate in these activities more often. When asked if in the future he becomes overwhelmed how he would handle it, he stated he would call either a host mom or one of the emergency crisis numbers. He stated being relieved his medical concerns were taken care of while in the hospital, referring to his hemorrhoids/mass being looked at. He was agreeable to therapy at school. Mr. Chavis was reminded to contact his academic counselor in times he feels academically overwhelmed and needs guidance. He was also encouraged to plan and anticipate deadlines for potential stressors, such as exams/assignments, so that they do not buildup and create anxiety. He was in agreement with this plan. His plans on discharge were to return to his dorm, collect his things, and move in with his host mom Kathy until school starts back up in a few weeks. MSE General: male. h/g fair. Appropriately groomed and dressed. Appearance: Wearing hospital gown. Attitude: Calm, cooperative. Behavior: Appropriate eye contact. Motor Activity: No agitation or retardation. No EPS/TD. Normal gait. Speech: Regular rate, rhythm, volume and tone, spontaneous, fluent. Mood: OK overall Affect: Appropriate with full range. Congruent with mood, nonlabile. Thought Process: Organized, linear, goal directed. Associations are logical. Thought Content: Does not endorse suicidal or homicidal ideation, no delusions elicited. Thought Perception: Does not endorse auditory or visual hallucinations, does not appear to be responding to hallucinatory stimuli. Cognition: No deficits noted. Insight: Fair Judgment: Good I spent >30 minutes with this patient. Greater than 50% of this time was spent in counseling and coordination of care. Psychiatric Care: Risk Assessment at Discharge: Suicide Risk Assessment: gender identity issues, male, prior suicide attempt, suicidal ideations, plans, behaviors Protective Factors against Suicide: employment, fear of suicide, positive family relationships, sense of responsibility toward family, social support / connectedness Risk of Harm to Self is Considered: moderate Risk Mitigated by: Providing patient with local resources for support/therapy Violence Risk Assessment: lower socioeconomic class, male Acute Risk of Harm to Others is Considered: minimal Risk Mitigated by: Providing patient with local resources for support/therapy Psychiatric Continuing Care Plan: Reason for Hospitalization: suicidal thoughts(2) Discharge Destination: home(2) Tobacco Use: Screening: Was the patient screened within the first 3 days of admission for tobacco use (cigarettes, smokeless tobacco, pipe, and cigar) within the previous 30 days?: no This patient is being discharged on multiple antipsychotic medications: no: Take all medications until outpatient provider advises otherwise. (2) Discharge Information: and Continuing Care: Discharge Instructions: Follow up with Dr. Samuels (infectious disease) for continued HIV treatment, follow up with surgery appointment for hemorrhoid treatment, practice coping mechanisms, follow up with counseling appoint set up at [facility], Follow Up Appointments: Follow-Up Appointment 01: Physician/Dept/Service: Katerine Marquez Reason for Referral: counseling appt Scheduled Date/Time: 09-Jun-2018 11:00 Location: [address] [place] [address] Follow-Up Appointment 02: Physician/Dept/Service: Isabel Pineda [facility] Reason for Referral: Medical and mental health services Call to Schedule in: 2-3 days Location: [address] [place] [address] Follow-Up Appointment 03: Physician/Dept/Service: AIDS Task Force Reason for Referral: Infectious disease follow up Call to Schedule in: We are waiting to hear back for your appointment time. Someone will contact you once appointment time/date has been confirmed. ext [phone] Follow-Up Appointment 04: Physician/Dept/Service: Dr. Ruben Howard Reason for Referral: General surgery Call to Schedule in: Someone from Dr. Howard's office will call you to schedule Location: [facility]- They will let you know which location or [phone] Discharge Medications: Home Medication Atripla oral tablet - 1 tab(s) orally once a day (at bedtime) lidocaine 4% topical cream - 1 application topically 3 times a day - to Rectum PRN Medication docusate sodium 100 mg oral capsule - 1 cap(s) orally 2 times a day, As needed, HARD STOOLS, PRN Issues to Discuss at Follow-up / Goals for Continuing Care: Encouraged to use coping mechanisms learned during times of stress, utilize emergency crisis numbers whenever necessary. . Lab Results - Pending: None Radiology Results - Pending: None Signature/Cosignature/Attestation: Attending AttestationI saw and evaluated the patient. I personally obtained the florian and critical portions of the history and physical exam or was physically present for florian and critical portions performed by the resident/fellow. I reviewed the resident/fellow?s documentation and discussed the patient with the resident/fellow. I agree with the resident/fellow?s medical decision making as documented in the resident?s note. I personally evaluated the patient (as noted in the above attestation) on 26-May-2018 Electronic Signatures: Latasha Brooks (DO) (Signed 27-May-2018 23:39) Authored: Summary Content, Ongoing Care, Signature/Cosignature/Attestation Co-Signer: Send Summary, Summary Content, Psychiatric Care, Ongoing Care, Signature/Cosignature/Attestation Addie Gonzalez (CLIN COOR) (Signed 26-May-2018 16:44) Authored: Send Summary, Ongoing Care Shavonne Marti ( (Resident)) (Signed 26-May-2018 16:19) Authored: Send Summary, Summary Content, Psychiatric Care, Ongoing Care, Signature/Cosignature/Attestation Last Updated: 27-May-2018 23:39 by Latasha Brooks (DO) References: 1. Data Referenced From History and Physical - Psychiatry 22-May-2018 2:27 PM 2. Data Referenced From Discharge Profile2 25-May-2018 1:56 PM DAILY PROGRESS NOTE - Observed: 05/25/2018 Status: COMPLETED Source: [facility] 4:08 PM HOSPITALS REPOSITORY Subjective Data: JANUARY CHAVIS is a 23 year old Male who is Hospital Day # 5. Additional Information: During interview on 3E, Mr. Chavis states that his mood is pretty good. He says that he is eating and sleeping well. He says that he is still experiencing discomfort from his hemorrhoids. He expresses mixed emotions toward host family stating that he feels good they are there to support him but bad that he may be causing them stress. He states that he plans to seek access to counseling services at [facility] when school begins on the 08 of June. He states he is also open to other counseling resources. He was then asked about what outcome he hoped to gain from the email he sent to his professor, he stated that he wanted to express all the reasons why he did not finish his assignment and not give just another excuse. He stated that he no longer is responsible for the assignments he was unable to finish so is he no longer experiencing stress from the deadlines. When asked how he might resolve the financial stress he experiences from his Dad he said he?s concerned his Dad is going to breakdown and pass away. He continues to express concern about any bills he might incur during his time here. Reassurance was provided to Mr. Chavis about available resources to mitigate his financial circumstances. Per conversation with host family: Treatment team spoke with host family mothers, Kathy (January's host mom during high school) and Nahomy (January's host mom during college). Kathy plans for January to be discharged to her and when housing becomes available at [facility] she offered to pay for January?s housing so that he may arrive to [employer] early. Both host families seem to demonstrate significant concern and social support for Mr. Chavis. Host moms would like the treatment team to communicate to January to not be apprehensive about reaching out to them for support. Per afternoon interview 05/25/2018: January states that he has considerable worry about his and families finances and some irritability about being the only son in his family and thus the bearer of the bulk of the responsibility in his family. He states I wish I had a brother to share the responsibility with Denies sleep disturbances, fatigue, muscle tension, or restlessness. Objective: Objective Information: T PRBPSpO2 Value36.616 Date/Time05/25 15: 15:18 Range(36.2C - 36.8C ) (16 - 16 ) Pain at Rest reported at 05/24 21:00: 0 Mental Status Exam: General: male. h/g fair. Appropriately groomed and dressed. Appearance: Wearing hospital gown. Attitude: Calm, cooperative. Behavior: Appropriate eye contact. Motor Activity: No agitation or retardation. No EPS/TD. Normal gait. Speech: Regular rate, rhythm, volume and tone, spontaneous, fluent. Mood: pretty good Affect: Appropriate with full range. Congruent with mood. Thought Process: Organized, linear, goal directed. Associations are logical. Thought Content: Does not endorse suicidal or homicidal ideation, no delusions elicited. Thought Perception: Does not endorse auditory or visual hallucinations, does not appear to be responding to hallucinatory stimuli. Cognition: No deficits noted. Insight: Limited Judgment: Limited Medications: Continuous Medications No continuous medications are active Scheduled Medications 1. Docusate: 100 mg Oral 2 Times a Day 2. Efavirenz: 600 mg Oral Every 24 Hours 3. Tenofovir Disoproxil Fumarate 300 mg - Emtricitabine 200 m tablet(s) Oral Every 24 Hours PRN Medications 1. Acetaminophen: 650 mg Oral Every 4 Hours 2. diphenhydrAMINE: 50 mg Oral Every 6 Hours 3. diphenhydrAMINE Injectable: 50 mg IntraMuscular Every 6 Hours 4. Haloperidol Lactate: 5 mg Oral Every 6 Hours 5. Haloperidol Lactate Injectable: 5 mg IntraMuscular Every 6 Hours 6. Ibuprofen: 400 mg Oral Every 6 Hours 7. LORazepam: 2 mg Oral Every 6 Hours 8. LORazepam Injectable: 2 mg IntraMuscular Every 6 Hours 9. Magnesium Hydroxide -Al Hydrox -Simethicone Oral Liquid: 30 mL Oral Every 6 Hours 10. Magnesium Hydroxide Oral Liquid CONCENTRATE: 10 mL Oral Every 24 Hours 11. Phenylephrine 0.25% Topical (Preparation H): 1 application(s) Topical Every 8 Hours Assessment and Plan: Admitting Dx: Suicidal ideation: Assessment: Mr. January Chavis is a 23 year old Turkish male with no known past psychiatric history and past medical history of HIV who presents to [facility] ED via police with suicidal ideation. 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 Pt has minimal social support in the [place], and feels his only support in [place] (father) is disappointed in him. Impression: #Adjustment disorder with mixed anxiety and depressed mood- he is no longer endorsing SI. When he transiently thought about SI previously, it was in the setting of being very overwhelmed by his academic obligations. Currently remains future oriented and help seeking. - Patient is encouraged to attend group therapy in milieu - Therapy strongly recommended which he will set up in school - No immediate indication for psychotropic medication #HIV- well control and closely followed - continue antivirals - f/u with Dr. Lyons- next appt end of May #R/O sexually transmitted infections - 3 new partners since last STI check in Nov 2017 and one episode of unprotected sex - STI results pending- Plan for discharge 05/26/2018 #Dispo- d/c today. Host families aware and will allow him to stay in their home or finance an apartment for him. Medication Consent: Medication Consent: no medication changes necessary for review. Signature/Cosignature/Attestation: Attending AttestationI saw and evaluated the patient. I personally obtained the florian and critical portions of the history and physical exam or was physically present for florian and critical portions performed by the resident/fellow. I reviewed the resident/fellow?s documentation and discussed the patient with the resident/fellow. I agree with the resident/fellow?s medical decision making as documented in the resident?s note. I personally evaluated the patient (as noted in the above attestation) on 25-May-2018 Electronic Signatures: Latasha Brooks (DO) (Signed 26-May-2018 10:00) Authored: Objective, Assessment and Plan, Signature/Cosignature/Attestation Shavonne Marti ( (Resident)) (Signed 25-May-2018 16:09) Authored: Subjective Data Bell Rosario (MED STUD) (Signed 25-May-2018 17:04) Authored: Subjective Data, Objective, Assessment and Plan, Medication Consent Last Updated: 26-May-2018 10:00 by Latasha Brooks (DO) DISCHARGE PROFILE2 Observed: 05/25/2018 Status: UNK Source: [place] 1:56 PM HOSPITALS REPOSITORY Discharge Orders: Anticipated Discharge Date: ? Anticipated Discharge [id number] Psychiatric Continuing Care Plan: Reason for Hospitalization: suicidal thoughts Discharge Destination: home Additional Resources for Patient and Family: Crisis Hotline , Crisis Text line: text keyword 4hope to [id number] Successful Interventions during Inpatient Hospital Stay: coping skills, group programming This patient is being discharged on multiple antipsychotic medications: no: Take all medications until outpatient provider advises otherwise. Questions After Hospitalization: Phone Number: [facility] Transition Record: Transition Record Discussed: All 11 elements of this patient?s transition record were discussed with the patient/caregiver and the Next Level of Care Provider Transition Record Given: A copy of the transition record was given to the patient and was transmitted to the Next Level of Care Provider Provider FINAL REVIEW of Orders: Final Review: ? Final Review of Medication Reconciliation and Orders Completedby Physician ? Reviewing ProviderRuthuy Marti MD (Resident) at 26-May-2018 10:01:35 Appointments: Follow-Up Appointment 01: ? Physician/Dept/Alia Marquez ? Reason for Referralcounseling appt ? Scheduled Date/[id number] 11:00 ? [address] [facility] ? Phone [phone] ? Commentsif you need an appointment sooner please call and ask for Patricia Follow-Up Appointment 02: ? Physician/Dept/Gric[facility] ? Reason for ReferralMedical and mental health services ? Call to Schedule in2-3 days ? [address] [place] [address] ? Phone [phone] ? CommentsFriday- 1:00PM-6:00PM, Friday 8:00AM-9:30AM Follow-Up Appointment 03: ? Physician/Dept/ServiceAIDS Task Force ? Reason for ReferralInfectious disease follow up ? Call to Schedule inWe are waiting to hear back for your appointment time. Someone will contact you once appointment time/date has been confirmed. ? Phone [phone] ext [phone] Follow-Up Appointment 04: ? Physician/Dept/ServiceDr. Ruben Howard ? Reason for ReferralGeneral surgery ? Call to Schedule inSomeone from Dr. Howard's office will call you to schedule ? [facility] ? Phone [phone] or [phone] Electronic Signatures: Carlos Addie (CLIN COOR) (Signed 26-May-2018 13:46) Authored: Psychiatric Continuing Care Plan, Vascular, Appointments Tiffanie Morrow ([facility]) (Signed 26-May-2018 15:11) Authored: Vascular, Appointments, Gold Form - Chemical Analyst Summary Shavonne Marti (Resident)) (Signed 26-May-2018 10:02) Authored: Discharge Orders, Psychiatric Continuing Care Plan, Provider FINAL REVIEW of Orders Last Updated: 26-May-2018 15:11 by Tiffanie Morrow ([facility]) GC + CHLAMYDIA BY Collected: 05/25/2018 Status: F Source: [place] AMPLIFIED DETECTION 8:32 AM HOSPITALS REPOSITORY TYPE CODE TESTS RESULT OUT OF REFERENCE UNITS RANGE LAB GCAMP(LOIN NEGATIVE C) N.GONORRHEA,AMP NEGATIVE LIFIED LAB CTAMP(LOIN NEGATIVE C) CHLAMYDIA NEGATIVE TRACH.,AMPLIFIE D LAB SOURCE(JUNIOR NC) Lab Specimen Source Urine Performed By: #### GCCHA #### [facility] [address] [place] [address] DAILY PROGRESS NOTE - Observed: 05/24/2018 Status: COMPLETED Source: [place] [facility] 7:10 PM HOSPITALS REPOSITORY Subjective Data: JANUARY CHAVIS is a 23 year old Male who is Hospital Day # 4. Patient reports no changes. He continues to deny suicidal ideation and is only concerned about some pain caused by hemorrhoids. Overnight Events: Patient had an uneventful night. Objective: Objective Information: T PRBPSpO2 Value36.216 Date/Time05/24 16:428/5 16:42 Range(36.2C - 36.5C ) (16 - 16 ) Orthostatic 05/24 16:42 P BP [id number] / 81 (91 - 123 ) / (62 - 81 ) [id number] / 75 (111 - 111 ) / (75 - 75 ) Mental Status Exam: General: , young , male, looking tense and at times depressed He denies depression and denies suicidal ideation He is preoccupied with some physical symptoms and financial issues connected with his hospitalization Judgment and insight are limited Medications: I have reviewed active medication orders. Medication Consent: Medication Consent: no medication changes necessary for review. Electronic Signatures: Sharif Rosas) (Signed 24-May-2018 19:16) Authored: Assessment/Plan Review, Subjective Data, Objective, Medication Consent, Signature/Cosignature/Attestation Last Updated: 24-May-2018 19:16 by Sharif Rosas) PATIENT PROFILE - Observed: 05/22/2018 Status: UNK Source: [facility] V2 2:54 PM HOSPITALS REPOSITORY Profile: Initial Info: How to be AddressedPie Spoken Language PreferredEnglish Are you currently using the Personal Electronic Health Record or FolderBoyMango Reservationsno Are you interested in learning more about [facility] for the management of your healthdeclined Stated Reason for AdmissionI was tricked into coming here but does not deny depression or passive suicidality Arrived Fromemergency department Patient Belongingssee paper chart Medications Brought to Hospitalno General Health: Weight in kg66.1 kilogram(s) Weight in abr616.8 pound(s) Height in feet5 feet Height in inches7 inch(es) Height in cm170.1 centimeter(s) BMI (kg/m2)22.845 square meter Weight Methodactual (measured) Scale Typechair Height Methodstated RSP Based Care: How would you like to participate in your care?unable to answer What is the number one concern for you during this hospitalization?unable to answer What is the most important thing we can do to support you during this hospitalization?unable to answer Is there anything we need to know to best care for you?unable to answer Recent Change in Mood/Behaviorconcentration Hobbiesart/crafts Substance: Current or Former Substance Use never: Cigarette/Tobacco, e-Cigarette/Vaping, Alcohol, Street Drugs Health Mgmt: Symptoms/Conditions Managed at [facility] Relationship/Environ: Primary Source of Support/ComfortHost nhi [place] Lives Withalone Living ArrangementsDorm Resource/Environmental Concernsfinancial; medical Anticipated Transition 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 Allergies, Home Meds and Significant Events have been Reviewed and Verified with Patient/Familyyes ALLERGY, INTOLERANCE, ADVERSE EVENT: Allergies: ? No Known Allergies: Active Electronic Signatures: Rajni Polanco (RN) (Signed 22-May-2018 14:59) Authored: Profile, Additional Information Last Updated: 22-May-2018 14:59 by Rajni Polanco (YOLANDA) ADMISSION RISK SCREEN Observed: 05/22/2018 Status: UNK Source: [facility] 2:48 PM HOSPITALS REPOSITORY Allergies: Allergies: ? No Known Allergies: Patient Verification: ? New W ID Band Applied in my Departmentyes ? Patient Identity Verified Bypatient; medical record ? ID Band FULL Name, include Middle, spelling matches patient's ID used for verificationyes ? ID Band Matches Patient ID used for Verficationyes ? ID Band MRN Matches EMR MRNyes Advance Directive: ? Advance Directive Medicalno (1) ? Advance Directive Information Givenpatient/family declined ? Advance Directive Mental Healthnot applicable Falls Screen: Type of Assessmentadmission Risk for Injury Associated with Fallnone Fall Risk Conclusionmoderate falls risk with low risk for associated injury [place] Safety InterventionsWDL *orient to call system *instruct to call for assistance before getting out of bed *non-slip footwear when patient is out of bed *call claros in reach *personal items and telephone in reach *physically safe environment (no spills or clutter) *bed in lowest position with wheels locked *appropriate side rails in place *room/bathroom lighting operational, light cord in reach *appropriate signage on door Family Violence Screen: ? Are you or have you been threatened or abused physically, emotionally, or sexually by anyone?no ? Do you feel UNSAFE going back to the place where you are living?no ? Clinical assessment: Are there any apparent signs of injuries/behaviors that could be related to abuse/neglectno ? Social Service Consult for abuse/neglect needed this visit?no Functional screen: ? Functional Screen: In the recent/past 2-4 weeks, patient or family have noticedno issues that require a rehabilitation consult at this time Learning Assessment (Patient): ? Patient is Able to be Assessed for Learningyes ? Factors Influencing Readiness to Learnanxiety; depression ? Factors that Impact Ability to Learnacuteness of illness ? Devices/Methods Used to Communicateglasses ? Learning Preferencesverbal instruction; individual instruction; group instruction ? Cultural Considerationsforeign exchange student ? Developmental Considerationsnone ? Spiritism Considerationsnone Learning Assessment (Other Learner): ? Other learner availableno Suicide/Depression Screen: ? During the past month, have you often been bothered by feeling down, depressed or hopeless?yes (1) ? During the past month, have you often had little interest or pleasure in doing things?yes (1) ? Have you had any thoughts of harming yourself?no (1) ? Have you had any thoughts of harming anyone else?no (1) Adult Nutrition Screen: ? Have you recently lost weight without tryingno ? Have you been eating poorly because of a decreased appetiteno ? MST Score0 ? RiskMST = 0 or 1 Not at risk. Eating well with little or no weight loss ? Nutrition Consult needed this visit?no ? Can Patient Participate in Room Service?yes ? Patient requires Paper Dishes/Plastic Utensilsno Pain Screen: ? Pain Scalenumerical 0-10 ? Pain Scale Educationteaching provided ? Current Pain Level0 = None ? Acceptable Pain Level0 = None ? Expression of Pain (nonverbal)none ? Chronic Painno Spiritual Screen: ? Are there any cultural, spiritual, buddhist practices/values/needs that are important for us to know?yes Budhhist CAGE: Is this an injured patient at a Trauma Center ([facility] / [facility]): no (1) Vaccinations: Vaccination - Influenza Vaccination Screen: ? Is it flu season? (between and )No Vaccination - Pneumonia Vaccination Screen: ? Patient has received a previous pneumonia vaccine:no/unknown... ? Immunocompetent persons with underlying chronic conditions or reside in terminal clerk care facilitiesnone of these conditions ? Persons with Functional or Anatomic Asplenianone of these conditions ? Immunocompromised Personsnone of these conditions ? Pneumonia vaccine NOT indicated due to:patient DOES NOT have a condition that indicates vaccination Crescencio: Skin - Crescencio Scale: ? Crescencio: Sensory Perception (response to environment)(4) no impairment ? Crescencio: Moisture (degree skin exposed to moisture)(4) rarely moist ? Crescencio: Activity (ability to walk)(4) walks frequently ? Crescencio: Mobility (amount/control of body movement)(4) no limitation ? Crescencio: Nutrition (quality of food intake)(3) adequate ? Crescencio: Friction and Shear(3) no apparent problem ? Crescencio: Score22 Significant Indicatiors: Significant Indicators: Complete Pressure Injury: Pressure Injury Present on Admissionno Strengths (document at least 2 ): Describe Your Strengths: I can cook Describe Your Strengths 2: I am considerate of others Rough And Ready-Suicide Severity Rating Scale: ? Suicidal and Self-injurious Behavior in Past 3 Monthsn/a ? Suicidal and Self-injurious Behavior in Lifetimen/a ? Suicidal Ideation (check most severe in past)suicidal thoughts ? Activating Events (recent)current or pending isolation or feeling alone, recent loss(es) or other significant negative event(s): (legal, financial, relationship, etc), guilt about disappointing his father ? Treatment Historynot receiving treatment ? Clinical Status (recent)hopelessness, major depressive episode ? Protective Factors (recent)none at this time ? Suicide Potential Assessmenthigh risk Homicide Risk/Potential for Violence Assessment: Has someone close to you ever told you that you have an anger problem: no Threats of violence and/or actual commission of violence toward others in the past 6 months: no Threats of violence and/or actual commission of violence toward self in the past 6 months: no History of threats of violence and/or actual commission of violence toward others greater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 patients on LAAM therapy. LAB OPIAT(LOINC) NEGATIVE PRESUMPTIVE OPIATES NEGATIVE SCREEN,U Result Comment: CUTOFF LEVEL: 300 NG/ML The opiate screen does not detect fentanyl, meperidine, or tramadol. Oxycodone is not consistently detected (refer to Oxycodone Screen, Urine result). LAB OXYS2(LOINC) NEGATIVE PRESUMPTIVE OXYCODONE NEGATIVE SCREEN,U Result Comment: CUTOFF LEVEL: 100 NG/ML This test will accurately detect both oxycodone and oxymorphone. LAB PCP(LOINC) NEGATIVE PCP PRESUMPTIVE SCREEN,U NEGATIVE Result Comment: CUTOFF LEVEL: 25 NG/ML Cross-reactivity has been reported with dextromethorphan. Performed By: #### DRUG3 #### [facility] [address] [place] [address] URINALYSIS Collected: 05/22/2018 Status: F Source: [place] 6:34 AM HOSPITALS REPOSITORY TYPE CODE TESTS RESULT OUT OF REFERENCE UNITS RANGE LAB COLU(LOINC STRAW,YELLOW ) COLOR YELLOW LAB APPRU(LOIN CLEAR C) APPEARANCE CLEAR LAB SPGRU(LOIN 1.005 - 1.035 C) SPECIFIC GRAVITY 1.020 LAB JIGAR(LOINC) 5.0 - 8.0 pH 5.0 LAB PROTU(LOIN NEGATIVE mg/dL C) PROTEIN NEGATIVE LAB GLUCU(LOIN NEGATIVE mg/dL C) GLUCOSE NEGATIVE LAB BLDU(LOINC NEGATIVE ) BLOOD NEGATIVE LAB KETU(LOINC NEGATIVE mg/dL ) KETONES NEGATIVE LAB BILIU(LOIN NEGATIVE C) BILIRUBIN NEGATIVE LAB UROU2(LOIN 0.0 - 1.9 mg/dL C) UROBILINOGEN <2.0 LAB NITRU(LOIN NEGATIVE C) NITRITE NEGATIVE LAB LEUKU(LOIN NEGATIVE C) LEUKOCYTE ESTERASE NEGATIVE Performed By: #### UA #### [facility] [address] [place] [address] PROVIDER NOTE - ED Observed: 05/22/2018 Status: COMPLETED Source: [facility] 3:05 AM HOSPITALS REPOSITORY ED Care Transition: Chart Review: ED NOTES ED NOTES: Patient was signed out to me hemodynamically stable awaiting placement for SI with very detailed plan. I sat and spoke with him for quite some time about his situation as he was very apprehensive to be treated inpatient. Overall he became very amenable to the idea and overall his insight improved quite a bit. Pt will be admitted for inpatient treatment for his SI. He was told he is unable to leave the ER and understands this. CLINICAL IMPRESSION Diagnosis/Annotation: ED Dx Name:Suicidal ideation Code:R45.851 Dispostion: hospitalized Admit to: Behavioral Health. Admitting Considerations: Condition on Disposition: stable ATTESTATION Attestation: I saw and evaluated the patient. I personally obtained the florian and critical portions of the history and physical exam or was physically present for florian and critical portions performed by the resident/fellow. I reviewed the resident/fellow?s documentation and discussed the patient with the resident/fellow. I agree with the resident/fellow?s medical decision making as documented in the resident?s note CRITICAL CARE TIME Is this a critically ill patient?: no Electronic Signatures: Rebel Daly (Resident)) (Signed 22-May-2018 03:06) Authored: ED Care Transition Gume Perkins () (Signed 08-Jun-2018 22:19) Authored: ED Care Transition Co-Signer: ED Care Transition Last Updated: 08-Jun-2018 22:19 by Gume Perkins () PSYCHIATRIC MENTAL Observed: 05/21/2018 Status: UNK Source: [facility] - 10:10 PM HOSPITALS REPOSITORY SOCIAL WORK Information: Name of Machine Sign Writer: Flory Bishop [facility] ED Patient EPAT Referral Date/Time: 21-May-2018 23:51 EPAT Assessment Start Date/Time: 21-May-2018 22:15 Legal Status: involuntary History of Present Illness: HPI: Patient is a 23y/o 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 Patient reported that he sent his professor at [employer] an email earlier this day apologizoing for being behond on a few assignments. He also reportee that in his email he wrote that he was playing tug or war with his thoughtsof wanting to kill himself. Patient reports that he will not kill himself while linving [place] the [place], will kill himself when he returns to his home country next year. Patient was able to verbalize a vague plan or jumping into a river and drowning because he is not able to swim. Patient reported much stress related to his precieved financial burden to his father due to being a college student in another country and additional medical expenses that have accrued due to a recent medical complication. Patient was able to verbalize much distress related to being a failure to his father because I am not able to be what he wants me to be. Patient reported that his father wants him to be a business support staff, get and have kids and sons and carry on the family name. Patient stated I am not able to do any of that. Patient then reported that he has unprotected sex one time and got HIV. Patient presents with very little hope to live and feeling overwhelmed with current stressors and internalized feelings/thoughts of being a failure. Patient cried throughout the assessment and was very upset about medical expenses that would accrue again as a result of him being the ED this day. Patient has very little support [place] in the [place] and has no history of mental health in the past. No past suicidal attempts reported. Arrival Details: Means of Arrival: Ambulatory Mode of Arrival: Police Arrived from: Home Dorm here at [place] ADULT Psychiatric Review of Symptoms: Anxiety: MARINO General Anxiety Disorder: difficult to control worry, excessive anxiety/worry Depression: guilt, helpless, hopeless, persistant thoughts of , suicidal thoughts, tearfulness, withdrawn Delirium: negative Psychosis: negative Shannen: negative Safety Issues: suicidal ideation Psychiatric Review of Symptoms: Patient reported that he is suicidal however reported that he would not kill himself while [place] in the [place]. He reported that his plan is to kill himself once he returns to his home country next year. Past Psychiatric History: Past Psychiatric History: Current Psychiatrist : Current Therapist : None Other Providers / Agencies : Outpatient Treatment History : None Inpatient Treatment History : None History of Suicidal Ideation / Attempts :NOne Past Psychiatric Meds/Treatments/ECT: NOne Smoking Status: unknown if ever smoked Alcohol Use: denies Drug Use: denies Drug 2 Use: denies Occupation: Student Social History: Living Situation: [employer] Sexual Orientation: unknown Relationship Status: Children:single Family Relationships: father is primary support Primary Major Gifts Officer in Childhood:father Number of Siblings:unknown [place] Citizen:no Service:no Jehovah'S Witness:unknown Ethnic or Cultural factors: [place] [facility] History of Violence or Victimization:none History of Trauma or Abuse:none Work History(Disabled, currently workinig, retired, etc):student Current Income Source (Job, SSI, SSDI, Pension):family support Payee: Insurance (Commercial, Medicaid, Medicare, VA): [facility] Prescription Coverage: Leisure/Recreation Activities: art Current Stressors: feelings of failure to family. 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 No Known Allergies: Mental Status Exam: General: Appropriately groomed and dressed. Appearance: Appears stated age. Attitude: Calm, cooperative. Behavior: Appropriate eye contact. Motor Activity: No agitation or retardation. No EPS/TD. Normal gait. Speech: Regular rate, rhythm, volume and tone, spontaneous, fluent. Mood: hopeless, depressed. Affect: sad Thought Process: Organized, linear, goal directed. Associations are logical. Thought Content: Does endorse suicidal Thought Perception: Does not endorse auditory or visual hallucinations, does not appear to be responding to hallucinatory stimuli. Cognition: Alert, oriented x3. No deficits noted. Adequate fund of knowledge. No deficit in recent and remote memory. No deficits in attention, concentration or language. Insight: Good Judgment: fair Risk of Harm to Others: Ideation: none Plan: none Attempt: none Method: none Homicidality Presently: resolved Frequency of Thoughts: none Duration of Thoughts: none Impulsivity of Thoughts: none Reason for Current Thoughts: none Planned Thoughts/Actions: none History of Homicidal Attempts: date/action/outcome: none Psychiatric Risk Assessment: Psychiatric Risk Assessment: adult Violence Risk Assessment: none Acute Risk of Harm to Others is Considered: minimal Rough And Ready-Suicide Severity Rating Scale: ? Suicidal and Self-injurious Behavior in Past 3 Monthsn/a ? Suicidal and Self-injurious Behavior in Lifetimen/a ? Suicidal Ideation (check most severe in past)suicidal intent with specific plan ? Activating Events (recent)recent loss(es) or other significant negative event(s): (legal, financial, relationship, etc) ? Treatment Historynot receiving treatment ? Clinical Status (recent)hopelessness, perceived burden on family or others ? Protective Factors (recent)n/a ? 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 Patient reported that he sent his professor at [employer] an email earlier this day apologizoing for being behond on a few assignments. He also reportee that in his email he wrote that he was playing tug or war with his thoughtsof wanting to kill himself. Patient reports that he will not kill himself [place], will kill himself when he returns to his home country next year. Patient was able to verbalize a vague plan or jumping into a river and drowning because he is not able to swim. Patient reported much stress related to his precieved financial burden to his father due to being a college student in another country and additional medical expenses that have accrued due to a recent medical complication. Patient was able to verbalize much distress related to being a failure to his father because I am not able to be what he wants me to be. Patient reported that his father wants him to be a business support staff, get and have kids and sons and carry on the family name. Patient stated I am not able to do any of that. Patient then reported that he has unprotected sex one time and got HIV. Patient presents with very little hope to live and feeling overwhelmed with current stressors and internalized feelings/thoughts of being a failure. Patient cried throughout the assessment and was very upset about medical expenses that would accrue again as a result of him being the ED this day. Patient has very [place] and has no history of mental health in the past. No past suicidal attempts reported. Psychiatric Impression and Plan for Care :IP admission recommended Agitation Assessment: Is patient presenting as agitated? (If yes, please explain agitation) Did the patient require restraints? If so, when were restraints removed? Time? Is patient able to respond well to verbal redirection? Can patient return to current living situation once discharged from Hospital? If patient resides at custodial, is custodial in agreement: Fdc name and number for follow up: Patient being admitted to the Geriatric Unit?no If Yes, Date and time of Family Meeting: Family Contact Name and Number: Assessment and Recommendation Outcome: Patient's Perception of Outcome Achieved: Patient is very overwhelmed with admission. Wants to go home. Reviewed Assessment and Recommendations with: n/a Contact Name: n/a Contact Number 1: n/a Contact Number 2: n/a Relationship: n/a EPAT Date/Time Details: EPAT Assessment Complete Date/Time: 21-May-2018 23:30 Placement Disposition Date/Time: 22-May-2018 12:35 Patient Disposition: Disposition Location: [facility] Adult Electronic Signatures: Steve Marie (GENET) (Signed 22-May-2018 12:35) Authored: History of Present Illness, Risk Assessment, Assessment and Plan Flory Bishop (LUIS DANIEL) (Signed 21-May-2018 23:43) Authored: History of Present Illness, Arrival Details, ADULT Psychiatric Review of Symptoms, Past Psychiatric History, Social History, Allergies, Objective, Risk Assessment, Assessment and Plan Last Updated: 22-May-2018 12:35 by Steve Marie (GENET) CBC AND DIFFERENTIAL Collected: 05/21/2018 Status: F Source: [place] 8:47 PM HOSPITALS REPOSITORY TYPE CODE TESTS RESULT OUT OF REFERENCE UNITS RANGE LAB WBCR(LOINC 4.4 - 11.3 x10E9/L ) WBC 5.9 LAB NRBC(LOINC 0.0-0.0 /100 WBC ) NUCLEATED RBC 0.0 LAB RBCCT(LOIN 4.50 - 5.90 x10E12/L C) RBC 5.46 LAB HGB(LOINC) 13.5 - 17.5 g/dL HGB High 17.7 LAB HCT(LOINC) 41.0 - 52.0 % HCT 47.9 LAB MCV(LOINC) 80 - 100 fL MCV 88 LAB MCHC2(LOIN 32.0 - 36.0 g/dL C) MCHC High 37.0 LAB PLTCT(LOIN 150 - 450 x10E9/L C) PLT 194 LAB RDWCV(LOIN 11.5 - 14.5 % C) RDW-CV 12.3 LAB NEUT(LOINC 40.0 - 80.0 % ) % NEUTROPHIL 51.0 LAB IG(LOINC) 0.0 - 0.9 % % AUTOMATED 0.2 IMMATURE GRAN Result Comment: Percent differential counts (%) should be interpreted in the context of the absolute cell counts (cells/L). LAB LYMPH(LOINC) 13.0 - 44.0 % % LYMPHOCYTE 35.9 LAB MONO(LOINC) 2.0 - 10.0 % % MONOCYTE 9.7 LAB EOS(LOINC) 0.0 - 6.0 % % EOSINOPHIL 2.2 LAB BASO(LOINC) 0.0 - 2.0 % % BASOPHIL 1.0 LAB #NEUT(LOINC) 1.20 - 7.70 x10E9/L NEUTROPHIL 3.01 LAB #LYMP(LOINC) 1.20 - 4.80 x10E9/L LYMPHOCYTE 2.12 LAB #MONO(LOINC) 0.10 - 1.00 x10E9/L MONOCYTE 0.57 LAB #EOS(LOINC) 0.00 - 0.70 x10E9/L EOSINOPHIL 0.13 LAB #BASO(LOINC) 0.00 - 0.10 x10E9/L BASOPHIL 0.06 Performed By: #### CBCDF #### [facility] [address] [place] [address] DRUG SCREEN, BLOOD Collected: 05/21/2018 Status: F Source: [place] 8:47 PM HOSPITALS REPOSITORY TYPE CODE TESTS RESULT OUT OF REFERENCE UNITS RANGE LAB ACETT(LOIN >5.0 POSITIVE mg/L C) ACETAMINOPHEN <10.0 LAB BARBT(LOIN C) SERUM BARBITURATES NEGATIVE LAB PHEYT(LOIN >5.0 POSITIVE ug/mL C) PHENYTOIN <2.5 LAB THEOT(LOIN >5.0 POSITIVE ug/mL C) THEOPHYLLINE <2.5 LAB TRICT(LOIN C) TRICYCLICS, SERUM NEGATIVE LAB SALT(LOINC >2 POSITIVE mg/dL ) SALICYLATE <3 LAB ALCT(LOINC mg/dL ) ALCOHOL <10 Result Comment: FOR MEDICAL USE ONLY. REF VALUES < 10 Performed By: #### DRUGB #### [facility] [address] [place] [address] COMPREHENSIVE PANEL Collected: 05/21/2018 Status: F Source: [place] 8:47 PM HOSPITALS REPOSITORY TYPE CODE TESTS RESULT OUT OF REFERENCE UNITS RANGE LAB GLU(LOINC) 74 - 99 mg/dL GLUCOSE High 134 LAB SOD(LOINC) 136 - 145 mmol/L SODIUM 138 LAB K(LOINC) 3.5 - 5.3 mmol/L Low POTASSIUM 3.4 LAB CHLOR(LOIN 98 - 107 mmol/L C) CHLORIDE 102 LAB BIC(LOINC) 21 - 32 mmol/L BICARBONATE 27 LAB ANGAP(LOIN 10 - 20 mmol/L C) ANION GAP 12 LAB UREA(LOINC 6 - 23 mg/dL ) UREA NITROGEN 14 LAB CREA(LOINC 0.50 - 1.30 mg/dL ) CREATININE 0.94 LAB GFRFN(LOIN >60 mL/min/1.7 C) 3m2 GFR-NON AM. >60 LAB GFRAA(LOIN >60 mL/min/1.7 C) 3m2 GFR- AM. >60 Result Comment: CALCULATIONS OF ESTIMATED GFR ARE PERFORMED USING THE MDRD STUDY EQUATION FOR THE IDMS-TRACEABLE CREATININE METHODS. CLIN CHEM 2007;53:766-72 LAB CA(LOINC) 8.6 - 10.6 mg/dL CALCIUM 9.4 LAB ALB(LOINC) 3.4 - 5.0 g/dL ALBUMIN 4.6 LAB AP(LOINC) 33 - 120 U/L ALKALINE PHOSPHATASE 101 LAB TP(LOINC) 6.4 - 8.2 g/dL TOTAL PROTEIN 7.8 LAB AST(LOINC) 9 - 39 U/L AST 22 LAB TBILI(LOINC) 0.0 - 1.2 mg/dL BILIRUBIN,TOTAL 0.6 LAB ALT(LOINC) 10 - 52 U/L ALT 27 Result Comment: Patients treated with Sulfasalazine may generate falsely decreased results for ALT. Performed By: #### CMP #### [facility] [address] [place] [address] TSH Collected: 05/21/2018 Status: F Source: [place] 8:47 PM HOSPITALS REPOSITORY TYPE CODE TESTS RESULT OUT OF RANGE REFERENCE UNITS LAB TSH2(LOINC) 0.44 - 3.98 mIU/L TSH 1.48 Result Comment: TSH testing is performed using different testing methodology at [facility] than at other [facility]. Direct result comparisons should only be made within the same method. . Patients receiving more than 5 mg/day of biotin may have interference in test results. A sample should be taken no sooner than eight hours after previous dose. Contact [phone] for additional information. Performed By: #### TSH2 #### [facility] [address] 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 Patient states that everything he does increases the bill that his father must bear. His dad is in [place] before his housing living expenses and caused laceration. He's been battling health issues mainly a painful hemorrhoid, new HIV-positive status, and is currently homeless at the time. Patient states that he wants to kill himself either by disappearing or throwing himself into a body of water as he cannot swim. He wants to do this when he returns back to [facility] as dying here with incur additional costs to his father. He also states that just being in our emergency department is giving him additional stress because he will incur another bill. Patient arrives with normal vital signs however in extreme acute distress. ROS: A 12 point review of systems was performed and is negative except as documented in the HPI. MED & SURG Hx: Reviewed HOME MEDS: Reviewed ALLERGIES: Reviewed SOCIAL Hx: Reviewed FAMILY Hx: Reviewed PHYSICAL EXAM: Vital Signs: As documented in the triage note and EMR and were reviewed. General: A&O x 4. Extreme emotional distress continually crying as he fell the story. Skin: Warm, Dry, and Intact. Head: Normocephalic, Atraumatic Eyes: PERRLA. EOMI. No scleral icterus Ears: Gross auditory acuity intact. No discharge. Mouth/Throat: MMM. No erythema, exudates or swelling. Neck: ROM intact. Trachea is midline. Normal thyroid size. Chest/Breast: Atraumatic. Symmetrical. Nontender. Heart: RRR. S1/S2 present. No M/R/G. No JVD. Lungs: Normal Respiratory Effort. CTA with equal rise bilaterally. No W/R/R. Abdomen: SNTND. BS x 4. No peritoneal signs. /RECTAL: Not examined. MSK/Extremities: Normal muscle bulk. 5/5 strength x 4. Normal joint ROM. No obvious deformities. NEURO: CN II - XII intact. No FND observed. Speech fluent. Answers questions appropriately. PSYCH: Appropriate mood and affect ?LABS: Ordered as noted in EMR. Significant values included in hospital course with normal values omitted. ?IMAGING: Ordered as noted in EMR. Radiology?s impression reviewed prior to disposition. ?EKG: Rate & Rhythm: NRSR. [place]: Normal. Intervals: Normal. STs&Ts: Unremarkable. Impression: Reassuring without any signs of ischemia. 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 Patient states that he has many stressors but are all rooted in finance. He states that his father is in [place] and his pain is twisted and living expenses at this time feels that he is incurring many coughs that are causing stress in his father. Patient states that his solution to reduce the stress is to end his own life for 2 disappear so the pills. Incurring on his father. He had gets additional stress and anxiety even when thinking about his as this will lalso inccur costs to his father. Emergency Medicine services was consulted. Patient is being pink slipped as he has a suicidal plan. Impression: Suicidal Ideation with plan Disposition: pending AD foote, anticipate psyc admission Discussed with Dr. Sachin Huggins MD, MPH Emergency Medicine, PGY-2 [facility] Patient case was discussed with the attending physician, who also saw and evaluated the patient. Patient and/or patient area representative was counseled regarding contents of ED COURSE / MEDICAL DECISION MAKING, impression and plan. All questions answered. If the patient was still in the ED as a patient when my ED shift ended the patient was turned over to the oncoming resident or attending physician. Portions of the note may have been dictated by speech recognition. HISTORY OF PRESENTING ILLNESS JANUARY was seen by me at 21-May-2018 20:26 for a chief complaint of psychiatric evaluation(1). Other complaints include: Patient arrives via CPD after feeling suicidal. Per patient, he states he wants to go back to his home town and end his life. He states he wrote his professor an email about this and he is under a large amount of stress. Pt placed in room 20 at this time and getting changed into gown. belongings placed in bag. Patient states this is a misunderstanding and he did not want to kill himself until he got home to his home country. . Triage Information: Most recent Vital Sign Value Date Temp (F): 98.2 05-21-2018 20:34 Temp (C): 36.8 05-21-2018 20:34 Heart Rate (beats/min): 75 05-21-2018 20:34 Respirations (breaths/min): 18 05-21-2018 20:34 SpO2 (%): 99 05-21-2018 20:34 BP Systolic (mm Hg): 113 05-21-2018 20:34 BP Diastolic (mm Hg): 80 05-21-2018 20:34 PAST MEDICAL HISTORY ATTESTATION: I have reviewed and confirmed nurse's/medic's notes for patient's medications, allergies, medical history, and surgical history ALLERGIES/INTOLERANCES: No Known Allergies HEALTH HISTORY: No documented data. OUTPATIENT MEDICATIONS: Home Medications Review Status for Reconciliation: Complete Med Status: Patient Currently Takes Medications Drug Name: Atripla oral tablet Instructions: 1 tab(s) orally once a day (at bedtime) SIGNIFICANT EVENTS: No documented data. RESULTS/VITAL SIGNS RESULTS: Recent Lab Results: I have reviewed these laboratory results: Drug Screen, Urine 22-May-2018 06:34:00 ResultValue Comments. SEE BELOW Drug screen results are presumptive and should not be used to assess compliance with prescribed medication. Contact the performing [facility] laboratory to add-on definitive confirmatory testing if clinically indicated. . Toxicology scre Amphetamine Screen, Urine PRESUMPTIVE NEGATIVE CUTOFF LEVEL: 500 NG/ML Cross-reactivity has been reported with high concentrations of the following drugs: buproprion, chloroquine, chlorpromazine, ephedrine, mephentermine, fenfluramine, phentermine, phenylpropanolamine Barbiturate Screen, Urine PRESUMPTIVE NEGATIVE PRESUMPTIVE NEGATIVE CUTOFF LEVEL: 200 NG/ML Benzodiazepine Screen, Urine PRESUMPTIVE NEGATIVE PRESUMPTIVE NEGATIVE CUTOFF LEVEL: 200 NG/ML Cannabinoid Screen, Urine PRESUMPTIVE NEGATIVE PRESUMPTIVE NEGATIVE CUTOFF LEVEL: 50 NG/ML Cocaine Metabolite Screen, Urine PRESUMPTIVE NEGATIVE PRESUMPTIVE NEGATIVE CUTOFF LEVEL: 150 NG/ML Methadone Screen, Urine PRESUMPTIVE NEGATIVE CUTOFF LEVEL: 150 NG/ML The metabolite A-iamul-bnhibtymhisrpc (LAAM) is not detected by this method in concentrations that would be found in the urine of patients on LAAM therapy. Opiate Screen, Urine PRESUMPTIVE NEGATIVE CUTOFF LEVEL: 300 NG/ML The opiate screen does not detect fentanyl, meperidine, or tramadol. Oxycodone is not consistently detected (refer to Oxycodone Screen, Urine result). Oxycodone Screen, Urine (item) PRESUMPTIVE NEGATIVE CUTOFF LEVEL: 100 NG/ML This test will accurately detect both oxycodone and oxymorphone. PCP Screen, Urine PRESUMPTIVE NEGATIVE CUTOFF LEVEL: 25 NG/ML Cross-reactivity has been reported with dextromethorphan. Urinalysis 22-May-2018 06:34:00 ResultValue Color, Urine YELLOW Reference Range: STRAW,YELLOW Appearance, Urine CLEAR Specific [place], Urine 1.020 pH, Urine 5.0 Protein, Urine NEGATIVE Glucose, Urine NEGATIVE Blood, Urine NEGATIVE Ketones, Urine NEGATIVE Bilirubin, Urine NEGATIVE Urobilinogen, Urine <2.0 Nitrite, Urine NEGATIVE Leukocyte Esterase, Urine NEGATIVE Drug Screen, Blood 21-May-2018 20:47:00 ResultValue Acetaminophen Level, Serum <10.0 Reference Range: >5.0 POSITIVE Barbiturate Screen, Serum NEGATIVE Phenytoin Level, Serum <2.5 Reference Range: >5.0 POSITIVE Theophylline Level, Serum <2.5 Reference Range: >5.0 POSITIVE Tricyclics, Serum NEGATIVE Acetylsalicylic Acid Level, Serum <3 Reference Range: >2 POSITIVE Alcohol, Drug Screen, Blood <10 Complete Blood Count + Differential 21-May-2018 20:47:00 ResultValue White Blood Cell Count 5.9 Nucleated Erythrocyte Count 0.0 Red Blood Cell Count 5.46 HGB 17.7 H HCT 47.9 MCV 88 MCHC 37.0 H PLT 194 RDW-CV 12.3 Neutrophil % 51.0 Immature Granulocytes % 0.2 Lymphocyte % 35.9 Monocyte % 9.7 Eosinophil % 2.2 Basophil % 1.0 Neutrophil Count 3.01 Lymphocyte Count 2.12 Monocyte Count 0.57 Eosinophil Count 0.13 Basophil Count 0.06 Comprehensive Metabolic Panel 21-May-2018 20:47:00 ResultValue Glucose, Serum 134 H NA 138 K 3.4 L CL 102 Bicarbonate, Serum 27 Anion Gap, Serum 12 BUN 14 CREAT 0.94 GFR-Non >60 GFR- >60 Calcium, Serum 9.4 ALB 4.6 ALKP 101 T Pro 7.8 T Bili 0.6 Alanine Aminotransferase, Serum 27 Aspartate Transaminase, Serum 22 Thyroid Stimulating Hormone, Serum 21-May-2018 20:47:00 ResultValue Thyroid Stimulating Hormone, Serum 1.48 VITAL SIGNS: T PRBP SpO2O2(LPM) %FiO2 Method 22-May-2018 13:55:00-36.518 22-May-2018 12:45:[id number]/92 98 room air, no respiratory support 22-May-2018 10:59:00-36.40000967/85 99 22-May-2018 08:34:00-5193333/73 99 room air, no respiratory support 22-May-2018 06:56:[id number]/95 97 room air, no respiratory support 21-May-2018 20:34:00-36.82756999/80 99 room air, no respiratory support Orthostatic 05/22 13:55 P BP [id number] / 87 (132 - 132 ) / (87 - 87 ) [id number] / 86 (128 - 128 ) / (86 - 86 ) HANDOFF Transferring Patient to Incoming Team: yes Signed Out to Incoming Provider: ED Provider . Handoff Comments: Patient serious depression and signs of suicidal ideations with poor resources needing medical clearance followed by [facility] psychiatric assessment team evaluation and possible placement. ATTESTATION Attestation: I saw and evaluated the patient. I personally obtained the florian and critical portions of the history and physical exam or was physically present for florian and critical portions performed by the resident/fellow. I reviewed the resident/fellow?s documentation and discussed the patient with the resident/fellow. I agree with the resident/fellow?s medical decision making as documented in the resident/fellow?s note with the exception/addition of the following Comments/Additional Findings: Dr. Stephenson's note: I saw this patient in room: 19 with the advanced emergency medicine resident physician Dr. Memo Huggins. 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 He's been very depressed about he's not getting a plan at this time. He has no family here in [facility] this is from an MR. Very concerned about this patient having suicidal ideations. We'll have a medical clearance and then consultation with the emergency psychiatric assessment team. At 2300 the case was endorsed to Dr. zuñiga's at change of shift awaiting a plan. I have personally performed and/or participated in all of the above services and procedures. I have reviewed all the nurses' notes and have confirmed their findings, and have incorporated those findings into this medical record. I have reviewed the resident history and physician finding; as well as the treatment. On my own examination I agree and incorporated in this document my own history, examination findings and clinical decision making. CRITICAL CARE TIME Is this a critically ill patient?: no Electronic Signatures: Memo Huggins ( (Resident)) (Signed 22-May-2018 14:57) Authored: Provider Note - ED v2 Dung Stephenson) (Signed 23-May-2018 07:46) Authored: Provider Note - ED v2 Co-Signer: Provider Note - ED v2 Last Updated: 23-May-2018 07:46 by Dung Stephenson) References: 1. Data Referenced From Triage - ED 05/21/2018 8:34 PM TRIAGE - ED Observed: 05/21/2018 Status: UNK Source: [place] 8:34 PM [facility] REPOSITORY Quick Triage: The patient and/or guardian verbally acknowledges placement for services into the following (when Urgent Care Service hours are operating):emergency department Pain: Pain Rating (0-10): Rest0 Chart Review: CHIEF COMPLAINT JANUARY CHAVIS is a Male patient with a chief complaint of psychiatric evaluation. Onset of the Complaint: 21-May-2018 Other Complaints: Patient arrives via [facility] after feeling suicidal. Per patient, he states he wants to go back to his home town and end his life. He states he wrote his professor an email about this and he is under a large amount of stress. Pt placed in room 20 at this time and getting changed into gown. belongings placed in bag. Patient states this is a misunderstanding and he did not want to kill himself until he got home to his home country. Triage Date/Time: 21-May-2018 20:34 Pain Rating (0-10): Rest: 0 Vital Signs: Temperature: 98.2F ( 36.8C) taken temporal Blood Pressure: 113/80 Mean: Heart Rate: 75 Respiratory Rate: 18 Pulse Oximetry: 99% on room air, no respiratory support. Height: 5 feet 7.00 inches. 170.1 CM Weight: 150.0 pounds. Calculated 68.0 kg. (stated) Calculated BMI (kg/m2): 23.501 Calculated BSA (m2) 1.79 Cough lasting greater than 3 weeks: no Patient immunocompromised related to: N/A Travel outside of [facility]: no Allergies: no Patient has suicidal thoughts: no Patient has homicidal thoughts: no CHARU: 2 PAIN Pain Scale Used: GER Past Medical History: ? Past Medical History Reviewedyes Electronic Signatures: Marly Gonzalez (RN) (Signed 21-May-2018 21:06) Authored: Triage, Past Medical History Last Updated: 21-May-2018 21:06 by Marly Gonzalez (YOLANDA) VDRL,SERUM/QUALITATIVE Collected: Status: F Source: THE 04/08/2018 8:58 AM [employer] SYSTEM REPOSITORY TYPE CODE TESTS RESULT OUT OF REFERENCE UNITS RANGE LAB VDRL Nonreactive Nonreactive VDRL Performed By: #### VDRL #### [facility] [address] [place] [address], Observed: 04/08/2018 Status: F Source: THE GC/CHLAMYDIA 8:58 AM [employer] SYSTEM AMPLIFICATION REPOSITORY GC AMPLIFICATION: Negative CHLAMYDIA AMPLIFICATION: Negative Performed By: #### GCA #### [facility] [address] [place], [place] Observed: 04/08/2018 Status: F Source: THE GC/CHLAMYDIA 8:58 AM [employer] SYSTEM AMPLIFICATION REPOSITORY GC AMPLIFICATION: Negative CHLAMYDIA AMPLIFICATION: Negative Performed By: #### GCA #### [facility] [address] [facility] [address] [place] Observed: Status: F Source: THE GC/CHLAMYDIA/TRICHOMONAS 04/08/2018 8:58 AM [facility] SYSTEM AMPLIFICATION REPOSITORY CHLAMYDIA AMPLIFICATION: Negative GC AMPLIFICATION: Negative TRICHOMONAS AMPLIFICATION: Negative Performed By: #### GCT #### [facility] [address] [facility] [address] [place], [place] BASIC METABOLIC Collected: 02/17/2018 Status: F Source: [place] PROFILE (BMP) 8:08 PM [facility] REPOSITORY Order Comment: LIPID MISSED ADD ON TYPE CODE TESTS RESULT OUT OF RANGE REFERENCE UNITS LAB L501.0100 74-106 mg/dL Normal GLU 78 Result Comment: Please note revised GLUCOSE reference range effective 2017. LAB L501.1000 7-18 mg/dL High BUN 24 LAB L501.1100 0.70-1.30 mg/dL Normal CREAT,SERUM 1.12 Result Comment: The validity of the calculated GFR AND GFRAA in patients over 70 years has not been determined. Clinical correlation is essential. LAB L501.1110 >60 mL/min Normal EST GFR 87 Result Comment: Non- GFR Calc LAB L501.1115 >60 mL/min Normal EST GFR - AA 105 Result Comment: GFR Calc LAB L501.1300 10-20 RATIO High BUN/CRE 21.4 LAB L501.2200 8.5-10.1 mg/dL CA Normal 8.6 LAB L501.5300 136-145 mmol/L NA Normal 139 LAB L501.5600 3.5-5.1 mmol/L K Normal 3.5 LAB L501.5900 98-107 mmol/L CL Normal 104 LAB L501.6100 21.0-32.0 mmol/L Normal CO2 26.0 LAB L501.6200 5-15 Normal GAP 9 Performed By: #### L500.2500, L500.3400, L500.4100 #### [facility] [address] [place], [place], [address] LIVER PROFILE Collected: 02/17/2018 Status: F Source: [place] 8:08 PM [facility] REPOSITORY Order Comment: LIPID MISSED ADD ON TYPE CODE TESTS RESULT OUT OF RANGE REFERENCE UNITS LAB L501.1500 6.4-8.2 g/dL Normal T PROT 8.1 LAB L501.1800 3.2-5.0 g/dL Normal ALB 4.3 LAB L501.1950 2.2-4.2 g/dL Normal GLOB 3.8 LAB L501.4100 15-37 U/L High AST 97 LAB L501.4305 45-117 U/L Normal ALK P 94 LAB L501.4405 16-61 U/L Normal ALT 48 LAB L501.4600 0.20-1.00 mg/dL Normal T BILI 0.50 LAB L501.4700 0.00-0.30 mg/dL Normal D BILI 0.12 Performed By: #### L500.2500, L500.3400, L500.4100 #### [facility] [address] [facility] [place], [place], [id number] LIPID PROFILE Collected: 02/17/2018 Status: F Source: [place] 8:08 PM [facility] REPOSITORY Order Comment: LIPID MISSED ADD ON TYPE CODE TESTS RESULT OUT OF RANGE REFERENCE UNITS LAB L501.4900 200 mg/dL Normal CHOL 188 Result Comment: <200 mg/dL Desirable 200-240 mg/dL Borderline >240 mg/dL High Risk LAB L501.5000 mg/dL Normal TRIG 146 Result Comment: The drugs N-Acetylcysteine and Metamizole may falsely depress this assay. Serum Triglycerides Reference Interval Normal <150 mg/dL Borderline high 150 - 199 mg/dL High 200 - 499 mg/dL Very High > or = 500 mg/dL LAB L501.6400 mg/dL Normal HDL 43 Result Comment: The drugs N-Acetylcysteine and Metamizole may falsely depress this assay. Reference Range HDL <40 mg/dL Low HDL Cholesterol HDL >or= 60 mg/dL High HDL Cholesterol LAB L501.6500 0-130 mg/dL Normal LDL 116 LAB L501.6600 5-40 mg/dL Normal VLDL 29 Performed By: #### L500.2500, L500.3400, L500.4100 #### [facility] [address] [place], [place], [id number] CBC-COMPLETE BLOOD CNT Collected: 02/17/2018 Status: F Source: [place] NO DIFF 8:08 PM [facility] REPOSITORY TYPE CODE TESTS RESULT OUT OF RANGE REFERENCE UNITS LAB L100.1000 4.4-11.0 K/mm3 Normal WBC 6.3 LAB L100.1200 4.6-6.2 M/mm3 Normal RBC 5.14 LAB L100.1300 13.0-16.5 g/dl Normal HGB 16.4 LAB L100.1400 40-54 % Normal HCT 48.0 LAB L100.1500 80-94 fL Normal MCV 93.4 LAB L100.1600 27.0-32.0 pg Normal MCH 31.9 LAB L100.1700 32-36 g/gl Normal MCHC 34.2 LAB L100.1810 11.6-14.6 % Normal RDW CV 12.0 LAB L100.1820 35.1-43.9 fl Normal RDW SD 40.5 LAB L100.1900 150-450 K/mm3 Normal PLT 196 LAB L100.2000 6.2-12.0 fl Normal MPV 9.9 Performed By: #### L100.0500 #### [facility] [address] [place], [address] URINALYSIS, ROUTINE Collected: 02/17/2018 Status: F Source: [place] (DIPSTICK) 8:08 PM [facility] REPOSITORY Order Comment: How was Urine Obtained? CLEAN CATCH TYPE CODE TESTS RESULT OUT OF RANGE REFERENCE UNITS LAB L400.3000 Yellow COLOR Normal Yellow LAB L400.3050 Clear Normal CLARITY Clear LAB L400.3200 Normal mg/dl Normal GLUCOSE, UR Normal LAB L400.3300 Negative mg/dL Normal BILIRUBIN URINE Negative LAB L400.3400 Negative mg/dl High 15 KETONE UR LAB L400.3465 1.002-1.030 Normal SP.GR. DIPSTX 1.020 LAB L400.3550 5.0 - 8.0 pH UR Normal 6.0 LAB L400.3600 Negative mg/dl PROT Normal DIPSTX Negative LAB L400.3700 Normal mg/dl Normal UROBILI Normal LAB L400.3750 Negative Normal NITRITE UR Negative LAB L400.3780 Negative /ul Normal OCCULT BLOOD-UR Negative LAB L400.3800 Negative /ul LEUK Normal ESTERASE Negative Performed By: #### L400.2010 #### [facility] [address] [place], [address] RAPID PLASMIN REAGIN Collected: 02/17/2018 Status: F Source: [place] (RPR) 8:08 PM [facility] REPOSITORY TYPE CODE TESTS RESULT OUT OF REFERENCE UNITS RANGE LAB L700.5000 NONREACTIVE NONREACTIVE Normal RPR Performed By: #### L700.5000 #### [facility] [address] [place], [address] HEPATITIS C ANTIBODIES Collected: 02/17/2018 Status: F Source: [place] 8:08 PM [facility] REPOSITORY Order Comment: VERIFIED QNATIFERON ORDER WITH DR'S OFFICE. TYPE CODE TESTS RESULT OUT OF RANGE REFERENCE UNITS LAB L3100.0650 0.0-0.9 s/co ratio Normal HEP C AB <0.1 Result Comment: Negative: < 0.8 Indeterminate: 0.8 - 0.9 Positive: > 0.9 The CDC recommends that a positive HCV antibody result be followed up with a HCV Nucleic Acid Amplification test (643655). Performed at: [facility] [id number] Waiter Waitress: Lai Mendoza PhD, Phone: [phone] Performed By: #### L3100.0688, L3400.7000, L3890.3911 #### [facility] (refer to report for specific site) refer to report for address and phone number QUANTIFERON TB-GOLD Collected: 02/17/2018 Status: F Source: [place] 8:08 PM [facility] REPOSITORY Order Comment: VERIFIED QNATIFERON ORDER WITH DR'S OFFICE. TYPE CODE TESTS RESULT OUT OF RANGE REFERENCE UNITS LAB L3400.7025 Negative Normal QFT Negative TB GOLD Result Comment: The specimen received for QuantiFERON testing was incubated by the ordering institution. Specific procedures outlined in our Directory of Services and in the package insert for the QuantiFERON Gold (In Tube) test must be followed to enable for proper stimulation of cells for the production of interferon gamma. LAB L3400.7035 . Normal QFT TB Comment POS CRIT Result Comment: To be considered positive a specimen should have a TB Ag minus Nil value greater than or equal to 0.35 IU/mL and in addition the TB Ag minus Nil value must be greater than or equal to 25% of the Nil value. There may be insufficient information in these values to differentiate between some negative and some indeterminate test values. LAB L3400.7045 . IU/mL Normal QFT TB AB 0.10 VALUE LAB L3400.7055 . IU/mL Normal QFT NIL VALUE 0.10 LAB L3400.7065 . IU/mL > Normal QFT MITOGEN 10.00 YOSSI LAB L3400.7075 . IU/mL 0 Normal QFT AG - NIL LAB L3400.7085 . Normal QFT TB INTER Comment Result Comment: The QuantiFERON TB Gold (in Tube) assay is intended for use as an aid in the diagnosis of TB infection. Negative results suggest that there is no TB infection. In patients with high suspicion of exposure, a negative test should be repeated. A positive test indicates infection with Mycobacterium tuberculosis. Among individuals without tuberculosis infection, a positive test may be due to exposure to M. kansasii, M. szulgai or M. marinum. On the Internet, go to cdc.gov/tb for further details. Performed By: #### L3100.0625, L3400.7000, L3890.0200 #### [facility] (refer to report for specific site) refer to report for address and phone number CD4, T LYMPH HELPER Collected: 02/17/2018 Status: F Source: [place] COUNT 8:08 PM [facility] REPOSITORY Order Comment: [facility] '[facility] OFFICE. TYPE CODE TESTS RESULT OUT OF REFERENCE UNITS RANGE LAB L3890.0800 3.4-10.8 x10E3/uL WBC Normal Count 6.3 LAB L3890.0900 4.14-5.80 x10E6/uL RBC Normal Count 5.15 LAB L3890.1000 13.0-17.7 g/dL Normal Hemoglobin 16.2 LAB L3890.1100 37.5-51.0 % Normal Hematocrit 48.2 LAB L3890.1200 79-97 fL MCV 94 Normal LAB L3890.1300 26.6-33.0 pg MCH Normal 31.5 LAB L3890.1400 31.5-35.7 g/dL MCHC Normal 33.6 LAB L3890.1450 12.3-15.4 % RDW Normal 13.1 LAB L3890.1500 150-379 x10E3/uL Normal Platelets 230 LAB L3890.1600 Not Estab. % 54 Normal Neutrophils LAB L3890.1700 Not Estab. % Lymphs 35 Normal LAB L3890.1800 Not Estab. % 9 Normal Monocytes LAB L3890.1900 Not Estab. % 1 Normal Eosinophils LAB L3890.2000 Not Estab. % 1 Normal Basophils LAB L3890.2100 1.4-7.0 x10E3/uL Neutr Normal Absolute 3.5 LAB L3890.2200 0.7-3.1 x10E3/uL Lymphs Normal Absolute 2.2 LAB L3890.2300 0.1-0.9 x10E3/uL Monos Normal Absolute 0.5 LAB L3890.2400 0.0-0.4 x10E3/uL Eos 0 Normal Absolute LAB L3890.2500 0.0-0.2 x10E3/uL Basos 0 Normal Absolute LAB L3890.2505 . Immature Normal CellS Test not performed LAB L3890.2510 Not Estab. % Immature 0 Normal Grans LAB L3890.2515 0.0-0.1 x10E3/uL Imm 0 Normal Grans Abs LAB L3890.2520 . NRBC Normal Count Test not performed LAB L3890.2525 . HEME Normal COMMENT Test not performed LAB L3890.2530 359-1519 /uL ABS CD4 Normal HELPER 620 LAB L3890.2575 30.8-58.5 % Low % CD4 POS.LYMPH 28.2 Performed By: #### L3100.0625, L3400.7000, L3890.0200 #### [facility] (refer to report for specific site) refer to report for address and phone number HIV VIRAL LOAD Collected: 02/17/2018 Status: F Source: [place] QUANT 8:08 PM [facility] REPOSITORY Order Comment: MISSED TEST ADD ON TYPE CODE TESTS RESULT OUT OF RANGE REFERENCE UNITS LAB L3890.4100 . copies/mL Normal HIV-1 < 20 RNA,QUANT Result Comment: HIV-1 RNA detected The reportable range for this assay is 20 to 10,000,000 copies HIV-1 RNA/mL. LAB L3890.4200 . Normal Test not log10 performed HIV-1 RNA Result Comment: Result Units: nrf74wwsa/mL Unable to calculate result since non-numeric result obtained for component test. Performed at: - [facility] [address], [place], [place] [id number] Waiter Waitress: Lai Mendoza PhD, Phone: [phone] Performed By: #### L3890.4000 #### [facility] (refer to report for specific site) refer to report for address and phone number CBC W/DIFF, AUTOMATED Collected: 01/06/2018 Status: F Source: [place] 12:48 PM [facility] REPOSITORY TYPE CODE TESTS RESULT OUT OF RANGE REFERENCE UNITS LAB L100.1000 4.4-11.0 K/mm3 Normal WBC 6.1 LAB L100.1200 4.6-6.2 M/mm3 Normal RBC 5.10 LAB L100.1300 13.0-16.5 g/dl Normal HGB 16.5 LAB L100.1400 40-54 % Normal HCT 47.5 LAB L100.1500 80-94 fL Normal MCV 93.1 LAB L100.1600 27.0-32.0 pg High MCH 32.4 LAB L100.1700 32-36 g/gl Normal MCHC 34.7 LAB L100.1810 11.6-14.6 % Normal RDW CV 12.0 LAB L100.1820 35.1-43.9 fl Normal RDW SD 40.5 LAB L100.1900 150-450 K/mm3 Normal PLT 168 LAB L100.2000 6.2-12.0 fl Normal MPV 10.5 LAB L100.2100 47-70 % Normal NEUT% 62.2 LAB L100.2200 19-41 % Normal LY% 27.8 LAB L100.2300 0-10 % Normal MONO% 9.0 LAB L100.2400 0-5 % Normal EO% 0.3 LAB L100.2500 0-1 % Normal BASO% 0.5 LAB L100.2550 0.0-0.9 % Normal IM GRAN % 0.200 Result Comment: IG% - Immature Granulocytes (promyelocytes, myelocytes and metamyelocytes) > 1% indicates that a LEFT SHIFT is Present. LAB L100.2620 2.0-7.7 X10 3/uL Normal Absolute Neut 3.8 LAB L100.2720 0.83-4.51 X10 3/ul Normal Absolute Lymph 1.70 Performed By: #### L100.0100 #### [facility] [address] [place], [address] BASIC METABOLIC Collected: 01/06/2018 Status: F Source: [place] PROFILE (BMP) 12:48 PM [facility] REPOSITORY TYPE CODE TESTS RESULT OUT OF RANGE REFERENCE UNITS LAB L501.0100 74-106 mg/dL Normal GLU 106 Result Comment: Fasting Glucose result from 100 to 125 mg/dL suggests IMPAIRED HOMEOSTASIS per A.D.A. criteria. Please note revised GLUCOSE reference range effective 2017. LAB L501.1000 7-18 mg/dL High BUN 20 LAB L501.1100 0.70-1.30 mg/dL Normal CREAT,SERUM 1.09 Result Comment: The validity of the calculated GFR AND GFRAA in patients over 70 years has not been determined. Clinical correlation is essential. LAB L501.1110 >60 mL/min Normal EST GFR 90 Result Comment: Non- GFR Calc LAB L501.1115 >60 mL/min Normal EST GFR - AA 109 Result Comment: GFR Calc LAB L501.1300 10-20 RATIO Normal BUN/CRE 18.3 LAB L501.2200 8.5-10.1 mg/dL CA Normal 8.8 LAB L501.5300 136-145 mmol/L NA Normal 141 LAB L501.5600 3.5-5.1 mmol/L K Normal 3.9 LAB L501.5900 98-107 mmol/L CL Normal 104 LAB L501.6100 21.0-32.0 mmol/L Normal CO2 32.0 LAB L501.6200 5-15 Normal GAP 5 Performed By: #### L500.2500, L500.3400 #### [facility] [address] [place], [address] LIVER PROFILE Collected: 01/06/2018 Status: F Source: [place] 12:48 PM [facility] REPOSITORY TYPE CODE TESTS RESULT OUT OF RANGE REFERENCE UNITS LAB L501.1500 6.4-8.2 g/dL Normal T PROT 7.9 LAB L501.1800 3.2-5.0 g/dL Normal ALB 3.9 LAB L501.1950 2.2-4.2 g/dL Normal GLOB 4.0 LAB L501.4100 15-37 U/L Normal AST 23 LAB L501.4305 45-117 U/L Normal ALK P 99 LAB L501.4405 16-61 U/L Normal ALT 33 Result Comment: Please note revised ALT reference range effective 2017. LAB L501.4600 0.20-1.00 mg/dL Normal T BILI 0.60 LAB L501.4700 0.00-0.30 mg/dL Normal D BILI 0.11 Performed By: #### L500.2500, L500.3400 #### [facility] [address] [place], [place], [id number] CD4:CD8 RATIO Collected: 01/06/2018 Status: F Source: [place] 12:48 PM [facility] REPOSITORY TYPE CODE TESTS RESULT OUT OF REFERENCE UNITS RANGE LAB L3890.0277 359-1519 /uL ABS CD4 Normal HELPER 500 LAB L3890.0279 109-897 /uL ABS CD8 High SUPRESS 905 LAB L3890.0400 30.8-58.5 % Low % CD4 POS.LYMPH 27.8 LAB L3890.0600 12.0-35.5 % % CD8 High POS.LYMPH 50.3 LAB L3890.0700 0.92-3.72 Low CD4/CD8 RATIO 0.55 LAB L3890.0800 3.4-10.8 x10E3/uL WBC Normal Count 6.0 LAB L3890.0900 4.14-5.80 x10E6/uL RBC Normal Count 5.22 LAB L3890.1000 13.0-17.7 g/dL Normal Hemoglobin 16.7 LAB L3890.1100 37.5-51.0 % Normal Hematocrit 47.7 LAB L3890.1200 79-97 fL MCV 91 Normal LAB L3890.1300 26.6-33.0 pg MCH Normal 32.0 LAB L3890.1400 31.5-35.7 g/dL MCHC Normal 35.0 LAB L3890.1450 12.3-15.4 % RDW Normal 13.2 LAB L3890.1500 150-379 x10E3/uL Normal Platelets 177 LAB L3890.1600 Not Estab. % 63 Normal Neutrophils LAB L3890.1700 Not Estab. % Lymphs 29 Normal LAB L3890.1800 Not Estab. % 7 Normal Monocytes LAB L3890.1900 Not Estab. % 0 Normal Eosinophils LAB L3890.2000 Not Estab. % 1 Normal Basophils LAB L3890.2100 1.4-7.0 x10E3/uL Neutr Normal Absolute 3.8 LAB L3890.2200 0.7-3.1 x10E3/uL Lymphs Normal Absolute 1.8 LAB L3890.2300 0.1-0.9 x10E3/uL Monos Normal Absolute 0.4 LAB L3890.2400 0.0-0.4 x10E3/uL Eos 0 Normal Absolute LAB L3890.2500 0.0-0.2 x10E3/uL Basos 0 Normal Absolute LAB L3890.2505 . Immature Normal CellS Test not performed LAB L3890.2510 Not Estab. % Immature 0 Normal Grans LAB L3890.2515 0.0-0.1 x10E3/uL Imm 0 Normal Grans Abs Result Comment: Performed at: [facility] [employer] [id number] Waiter Waitress: Lai Mendoza PhD, Phone: [phone] LAB L3691.8404 . Normal Test not HEME COMMENT performed Performed By: #### L3890.0100 #### [facility] (refer to report for specific site) refer to report for address and phone number HIV VIRAL LOAD Collected: 01/06/2018 Status: F Source: [facility] 12:48 PM [facility] REPOSITORY TYPE CODE TESTS RESULT OUT OF RANGE REFERENCE UNITS LAB L3890.4100 . copies/mL Normal HIV-1 < 20 RNA,QUANT Result Comment: HIV-1 RNA detected The reportable range for this assay is 20 to 10,000,000 copies HIV-1 RNA/mL. LAB L3890.4200 . Normal Test not log10 performed HIV-1 RNA Result Comment: Result Units: kjm83aczg/mL Unable to calculate result since non-numeric result obtained for component test. Performed at: [facility] [employer] [address] [id number] Waiter Waitress: Lai Mendoza PhD, Phone: [phone] Performed By: #### L3890.4000 #### [facility] (refer to report for specific site) refer to report for address and phone number ALLERGIES ALLERGIES No Allergies Records FoundENCOUNTERS ENCOUNTERS ADMIT/DISCHARGE ACCOUNT NUMBER ADMITTING ENCOUNTER LOCATION SOURCE CLASS 11/12/2018 [id number] [facility] ding:LAB Repository 06/11/2018 [id number] [facility] ding:LAB.FUT Repository URE 06/09/2018/06/09/[id number] [facility] [address] AORRoom: Hospitals [id number]: Repository [id number] 06/04/[id number] [facility] Repository 05/21/2018/05/22/20 [id number] Ambulatory UHCBuilding: [place] [address] TESARoom: [facility] [id number]: Repository [id number] 05/13/2018/05/13/20 [id number] Unknown Ambulatory [facility] Repository 04/28/2018 [id number] [facility] ding:LAB.FUT Repository URE 04/08/2018/04/08/20 [id number] Unknown Ambulatory [facility]ildin [facility] Repository 02/17/2018 [id number] [facility] ding:CLSP Repository 01/06/2018 [id number] [facility] ding:LAB.FUT Repository URE PAYERS PAYERS ENCOUNTER GUARANTOR PAYER SUBSCRIBER SOURCE 11/12/2018 PYAE [id number] Primary PYAE THEINDOB: [facility] [address] Insurance:[employer] [id number] Hospital [id number], Number: Repository [place] [address]Fkj: [id number] Date:[id number] BOX () [id number], [place] [address]QJ: 11/12/2018 [facility] INSURANCEPolicy Repository Number: Effective Date:2018-11-11 06/11/2018 PYAE [id number] Primary PYAE THEINDOB: [facility] Insurance:[facility] [id number] Number: Repository [id number]: [phone] [id number] [phone] () Date:4947-03-23[address]X [address]KPXRY[place]EQ [place] [address]NA: 06/11/2018 [facility] Number: Effective Date:2018-06-11 06/09/2018 PYAE THEINDOB: Primary PYAE THEINDOB: [place] Insurance:Commercial [id number] [place] [address] Number: [facility] Repository [place], [place] [id number] [place], [place] [address]Hlx: ([phone]) Date:Plan [phone]: () Name:[facility] [phone] () [id number], [place] [id number]: 06/04/2018 PYAE THEINDOB: Primary PYAE THEINDOB: [place] Insurance:Commercial [id number] [place] [address] Number: 9 [facility] Repository [place], [place] [id number] [place], [place] [address]Rrc: ([phone]) Date:Plan [phone]: () Name:[facility] [phone] () [id number] [place] [id number]: 05/21/2018 PYAE THEINDOB: Primary PYAE THEINDOB: [place] Insurance:Commercial [id number] [place] [address] Number: 9 [facility] Repository [place], [place] [id number] [place], [place] [address]Bnc: (646) Date:Plan [address]27[address]Znx: () Name:[facility] [phone] () [id number], [place] [id number]: 05/13/2018 PYAE THEINDOB: Primary PYAE THEINDOB: [facility] Insurance:[facility] [id number] System Repository [facility] [place] Number: [place] [id number]: [phone]) [id number] [id number]: () Date:2018-04-19 [phone] () 04/28/2018 PYAE [id number] Primary NOT GIVENUNK [facility] Insurance:SELF PAY Hospital [place] ar INSURANCEPolicy Repository [id number]: (646) Number: Effective [phone] () Date:2018-04-28 04/08/2018 PYAE THEINDOB: Primary PYAE THEINDOB: [facility] Insurance:[employer] [id number] System Repository [facility] [employer]/HMO,PPO,POSPoli [facility] [place] Number: [place] [id number]: [phone]) [id number] [id number]: () e Date:2017-10-20 [phone] () 2018-04-19 04/08/2018 Secondary PYAE THEINDOB: [facility] Insurance:[employer] [id number] System Repository CROSS/O,PPO,POSPoli 9 [facility] cy Number: [place] [id number] 00017Ycc: (646) e Date:2017-10-20 [phone] () 2018-04-19 02/17/2018 PYAE [id number] Primary PYAE THEINDOB: [facility] [place] Insurance:[facility] [id number] Number: Repository [id number]: [phone] [id number] [phone] () e Date:7085-96-32[address] [place] [address]PC: 02/17/2018 Secondary NOT GIVENUNK [facility] Insurance:SELF PAY Hospital INSURANCEPolicy Repository Number: Effective Date:2018-02-17 01/06/2018 PYAE [id number] Primary PYAE THEINDOB: [facility] [place] Insurance:[facility] [id number] Number: Repository [id number]: [phone] [id number] [phone] () e Date:7017-72-93[id number] [place] [address]VB: 01/06/2018 Secondary NOT GIVENUNK [facility] Insurance:SELF PAY Hospital INSURANCEPolicy Repository Number: Effective Date:2018-01-05
== END ==
PROVIDERS: Family Provider Internal Medicine Infectious Disease; PCP Internal Medicine Infectious Disease; Referring Provider Internal Medicine Infectious Disease; Visit Provider Internal Medicine Infectious Disease
DX: B20 Human immunodeficiency virus [HIV] disease (principal)
CPT/HCPCS: 36415; 80048; 80061; 80076; 85027; 86361; 86592; 86803; 87340; 87536